=== PATIENT | female | born 1940 | race Caucasian/White ===

== ENCOUNTER 2019-08-08 12:35 | Outpatient (CLI) | payer MEDICARE, BC, SELFPAY ==
--- NOTE | ~2019-08-08 | MR_ITS ---
EXAMINATION: MR lumbar spine wo con DATE: 08/08/2019 13:34 INDICATION: Lumbar radiculopathy. TECHNIQUE: Magnetic resonance imaging (MRI) of the lumbar spine was performed without intravenous con trast. Sequences included sagittal T2-weighted FSE, sagittal T2-weighted FS FSE, sagittal T1-weighted FSE, and axial T2-weighted FSE. COMPARISON: Lumbar spine MRI 11/10/2017 FINDINGS: There is 18 degrees levoscoliosis of lumbar spine. There is 3 mm retrolisthesis of L1 on L2 , 4 mm retrolisthesis of L2 on L3, 3 mm anterolisthesis of L3 on L4, and 4 mm anterolisthesis of L4 o n L5. Vertebral body heights are normal. There is moderately decreased disc height at L1-L2, severely decreased disc height at L2-L3 and L3-L4, and mildly decreased disc height at L4-L5 and L5-S1. The d istal spinal cord signal intensity is normal. The conus medullaris is at L1-L2. The following disc le vels are specifically discussed: L1-L2: The disc is bulging. There is severe bilateral facet joint osteoarthritis. There is moderate b ilateral neural foraminal stenosis. There is mild central canal stenosis. L2-L3: The disc is bulging and has an annular fissure. There is severe bilateral facet joint osteoart hritis. There is severe right and mild left neural foraminal stenosis. There is mild central canal st enosis. L3-L4: The disc is bulging and has an annular fissure. There is severe bilateral facet joint osteoart hritis. There is moderate bilateral neural foraminal stenosis. There is severe central canal stenosis . L4-L5: The disc is bulging and has an annular fissure. There is severe bilateral facet joint osteoart hritis. There is moderate bilateral neural foraminal stenosis. There is severe central canal stenosis . L5-S1: The disc is bulging and has an annular fissure. There is severe bilateral facet joint osteoart hritis. There is mild bilateral neural foraminal stenosis. There is mild central canal stenosis. IMPRESSION: 1. Severe lumbar spondylosis, stable from 11/10/2017. 2. Lumbar levoscoliosis. Reviewed, dictated and finalized at location A.
== END 2019-08-08 12:36 | disposition home or self-care (01) ==
PROVIDERS: PCP Family Medicine; Visit Provider Nurse Practitioner Adult Health
DX: M47.26 Other spondylosis with radiculopathy, lumbar region (principal); M41.86 Other forms of scoliosis, lumbar region
CPT/HCPCS: 72148

== ENCOUNTER 2019-08-14 13:48 | Outpatient (CLI) | payer MEDICARE, BC, SELFPAY ==
[2019-08-14 14:17] LABS: Hematocrit 42.7 % (37.0-47.0); Hemoglobin 14.2 g/dL (12.0-15.0); Mean Corpuscular HGB Conc 33.3 g/dl (32-36); Mean Corpuscular Volume 87.3 fl (80-100); Mean Platelet Volume 8.8 fl (7.4-10.4); Platelet Count Result 372 k/mm3 (150-375); Red Blood Count 4.89 M/mm3 (4.2-5.4); White Blood Count 8.4 K/mm3 (4.5-10.0)
[2019-08-14 14:35] LABS: Blood Urea Nitrogen 10 mg/dL (7-17); Carbon Dioxide 32 mmol/L (22-30); Chloride 98 mmol/L (98-107); Estimated Glomerular Filt Rate > 60; Glucose 92 mg/dL (65-105); Potassium 3.8 mmol/L (3.4-5.0); Sodium 136 mmol/L (137-145)
== END 2019-08-14 13:49 | disposition home or self-care (01) ==
PROVIDERS: PCP Family Medicine; Visit Provider Nurse Practitioner Family
DX: R19.7 Diarrhea, unspecified (principal)
CPT/HCPCS: 36415; 80048; 85027

== ENCOUNTER 2020-02-24 13:41 | Outpatient (CLI) | payer MEDICARE, BC, SELFPAY ==
--- NOTE | ~2020-02-24 | XR_ITS ---
EXAMINATION: XR shoulder LT min 2V DATE: 02/24/2020 14:01 INDICATION: Left shoulder pain. TECHNIQUE: 4 views of left shoulder were obtained. COMPARISON: None. FINDINGS: Bone alignment is normal. No fracture. There is mild osteoarthritis of glenohumeral joint a nd moderate osteoarthritis of acromioclavicular joint. IMPRESSION: 1. Polyarticular osteoarthritis. Reviewed, dictated and finalized at location A. [employer]
== END 2020-02-24 13:42 | disposition home or self-care (01) ==
LOC: ANHIMG 13:50
PROVIDERS: PCP Family Medicine; Visit Provider Physician Assistant Medical
DX: M25.512 Pain in left shoulder (principal); M19.012 Primary osteoarthritis, left shoulder
CPT/HCPCS: 73030

== ENCOUNTER 2020-06-22 11:22 | Outpatient (CLI) | payer MEDICARE, BC, SELFPAY | END 2020-06-22 11:23 | disposition home or self-care (01) | PROVIDERS: PCP Family Medicine | DX: Z23 Encounter for immunization (principal) | CPT/HCPCS: 0001A; 91300 ==

== ENCOUNTER 2020-07-13 11:22 | Outpatient (CLI) | payer MEDICARE, BC, SELFPAY | END 2020-07-13 11:23 | disposition home or self-care (01) | LOC: ANHCOVIDVC 11:22 | PROVIDERS: PCP Family Medicine | DX: Z23 Encounter for immunization (principal) | CPT/HCPCS: 0002A; 91300 ==

== ENCOUNTER 2020-12-08 12:40 | Emergency (ER) | payer MEDICARE, BC, SELFPAY ==
--- NOTE | ~2020-12-08 | XR_ITS ---
EXAMINATION: XR hand LT min 3V DATE: 12/08/2020 13:05 INDICATION: Fall with open laceration to the left third digit TECHNIQUE: Posteroanterior, oblique and lateral views of the left hand were obtained. COMPARISON: None. FINDINGS: Diffuse osteopenia. 2 mm ulnar minus variance. No fracture. There is mild widening of the scapholunat e interval and slight incongruity along the carpal arcs at this location with nonuniform narrowing at the scaphoid capitate component of the midcarpal joint and at the radiolunate portion of the wrist j oint. 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 Additional mi ld polyarticular osteoarthritis at the distal radioulnar, triscaphe, first carpometacarpal and at the multiple metacarpophalangeal and interphalangeal joints. Soft tissues are unremarkable. No radiopaqu e foreign bodies. IMPRESSION: 1. No acute osseous abnormality or radiopaque foreign bodies. 2. Diffuse osteopenia and mild polyarticular osteoarthritis. 3. 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 Reviewed, dictated and finalized at location B. IMPRESSION: 1. No acute osseous abnormality or radiopaque foreign bodies. 2. Diffuse osteopenia and mild polyarticular osteoarthritis. 3. Constellation of findings suggesting scapholunate ligament insufficiency wit h secondary early scapholunate advanced collapse (SLAC) wrist.
--- NOTE | ~2020-12-08 | XR_ITS ---
EXAMINATION: XR hand RT min 3V DATE: 12/08/2020 13:05 INDICATION: Right hand injury. TECHNIQUE: 3 views of right hand were obtained. COMPARISON: None. FINDINGS: Bone alignment is normal. No fracture. There is diffuse osteopenia. There is mild osteoarth ritis of triscaphe joint, third and fifth metacarpophalangeal joints, and some of the interphalangeal joints. IMPRESSION: 1. Mild polyarticular osteoarthritis. Reviewed, dictated and finalized at location A.
[2020-12-08 12:45] VITALS: BP 140/89; PULSE 87; RESP 20; TEMP 36.8; O2SAT 99
--- NOTE | 2020-12-08 12:53 | ED.FALL ---
HPI - Fall General Chief Complaint: Fall Stated Complaint: ground level fall Time Seen by Provider: 12/08/20 12:44 Source: patient Mode of arrival: ambulatory Limitations: no limitations History of Present Illness HPI Narrative: Patient was trying to manage her trash can, somehow lost her balance and fell. Complaining of left middle finger pain and laceration, right hand pain. Patient denies other injuries. These have been prior to arrival to the emergency room. Related Data Home Medications Medication Instructions Recorded Confirmed hydrocodone 5 mg-acetaminophen 325 1 tablet PO Q6H PRN 03/26/19 08/24/20 mg tablet meclizine 25 mg tablet 25 mg PO TID 03/26/19 08/24/20 metoprolol succinate 25 mg 25 mg PO DAILY 03/26/19 08/24/20 tablet,extended release 24 hr rivaroxaban 10 mg tablet 10 mg PO DAILY 03/26/19 08/24/20 doxycycline hyclate 100 mg capsule 100 mg PO DAILY 03/24/20 08/24/20 Allergies Allergy/AdvReac Type Severity Reaction Status Date / Time lisinopril Allergy Mild itching Verified 12/08/20 12:52 nitrofurantoin Allergy Mild possible Verified 12/08/20 12:52 cause of Afib Sulfa (Sulfonamide Allergy Mild Unknown Verified 12/08/20 12:52 Antibiotics) adhesive tape Allergy Unknown SKIN TEARS Verified 12/08/20 12:52 alprazolam Allergy Unknown Unknown Verified 12/08/20 12:52 amoxicillin Allergy Unknown Unknown Verified 12/08/20 12:52 atorvastatin Allergy Unknown Unknown Verified 12/08/20 12:52 cerivastatin Allergy Unknown Unknown Verified 12/08/20 12:52 diclofenac Allergy Unknown Unknown Verified 12/08/20 12:52 ibuprofen Allergy Unknown Unknown Verified 12/08/20 12:52 inositol Allergy Unknown Unknown Verified 12/08/20 12:52 misoprostol Allergy Unknown Unknown Verified 12/08/20 12:52 naproxen Allergy Unknown Unknown Verified 12/08/20 12:52 niacin Allergy Unknown Unknown Verified 12/08/20 12:52 Penicillins Allergy Unknown Unknown Verified 12/08/20 12:52 pravastatin Allergy Unknown Unknown Verified 12/08/20 12:52 rosuvastatin Allergy Unknown Unknown Verified 12/08/20 12:52 simvastatin Allergy Unknown Unknown Verified 12/08/20 12:52 Dpzilbx-PXN-SdS Reductase Allergy Unknown joint pain Verified 12/08/20 12:52 Inhibitor [Odnkezn-Lus-Frt Reductase Inhibitor] topiramate Allergy Unknown Unknown Verified 12/08/20 12:52 Review of Systems Review of Systems: CONSTITUTIONAL: Denies fever, chills, or sweats. EYES: Denies visual changes, redness, or discharge. ENT: Denies rhinorrhea, congestion, sore throat, or otalgia. CARDIOVASCULAR: Denies chest pain, palpitations, or edema. RESPIRATORY: Denies cough or dyspnea. GASTROINTESTINAL: Denies abdominal pain, nausea, vomiting, or diarrhea. GENITOURINARY: Denies dysuria or hematuria. SKIN: Denies rash or itching. MUSCULOSKELETAL: Denies back pain, joint pain, or myalgia. NEUROLOGIC: Denies headache, numbness, or weakness. PSYCHIATRIC: Denies anxiety or depression. PMFSH Past Medical History Medical History Abdominal pain Anxiety Arthritis BMI 33.0-33.9,adult BMI 34.0-34.9,adult Depression Dizziness Fibromyalgia Painful total knee replacement Spinal stenosis Vertigo Vision changes Wears glasses Weight gain Surgical History Surgical History S/P total knee arthroplasty Family History Family History Mother Hypertension Cerebrovascular accident Sibling Carcinoma of colon Family history of coronary artery disease Other Diabetes mellitus Family history of malignant neoplasm Social History Social History Smoking status: Never smoker Second hand tobacco smoke exposure: No Alcohol intake: never Substance use: never Substance use type: does not use Exam Narrative: General appearance: Well-developed, well-nourished
[2020-12-08] MEDS: TETANUS,DIPHTHERIA,AC PERTUSSIS ADULT (0.5 ML) BOOSTRIX IM (13:17)
[2020-12-08 15:00] VITALS: BP 112/72; PULSE 84; RESP 20; O2SAT 99
== END 2020-12-08 15:00 | disposition home or self-care (01) ==
PROVIDERS: Emergency Provider Emergency Medicine; PCP Family Medicine
DX: S61.213A Laceration without foreign body of left middle finger without damage to nail, initial encounter (principal); Z79.891 Long term (current) use of opiate analgesic; Z23 Encounter for immunization; W19.XXXA Unspecified fall, initial encounter
CPT/HCPCS: 12001; 73130; 90471; 90715; 99284; J3010

== ENCOUNTER → 2021-04-02 02:46 | Outpatient (CLI) | payer MEDICARE, BC, SELFPAY ==
[2021-04-02 18:24] LABS: SARS-CoV-2 RNA PCR Negative
== END ==
PROVIDERS: PCP Family Medicine; Visit Provider Physician Assistant Medical
DX: R68.89 Other general symptoms and signs (principal); Z20.822 Contact with and (suspected) exposure to COVID-19
CPT/HCPCS: C9803; U0003; U0005

== ENCOUNTER 2021-05-11 13:35 | Outpatient (CLI) | payer MEDICARE, BC, SELFPAY ==
[2021-05-11 13:56] LABS: Basophils Absolute Auto 0.1 K/mm3 (0.0-0.1); Basophils Percent Auto 0.8 % (0.2-1.2); Eosinophils Absolute Auto 0.4 K/mm3 (0-0.3); Eosinophils Percent Auto 3.8 % (0-4.4); Hematocrit 42.3 % (37.0-47.0); Hemoglobin 13.6 g/dL (12.0-15.0); Immature Granulocyte Absolute 0.02 K/mm3 (0.00-0.031); Immature Granulocyte Percent A 0.2 % (0-0.5); Lymphocytes Absolute Auto 3.24 K/mm3 (0.9-3.2); Mean Corpuscular HGB Conc 32.2 g/dl (32-36); Mean Corpuscular Hemoglobin 28.2 pg (26-34); Mean Corpuscular Volume 87.8 fl (80-100); Mean Platelet Volume 8.4 fl (7.4-10.4); Monocytes Absolute Auto 0.9 K/mm3 (0.1-0.6); Monocytes Percent Auto 9.8 % (2.6-8.5); Neutrophils Absolute Auto 4.7 K/mm3 (1.3-6.7); Neutrophils Percent Auto 50.4 % (45.5-73.1); Platelet Count Result 353 k/mm3 (150-375); Red Blood Count 4.82 M/mm3 (4.2-5.4); White Blood Count 9.3 K/mm3 (4.5-10.0)
[2021-05-11 14:21] LABS: Alanine Aminotransferase 19 U/L (4-35); Albumin Level 4.4 g/dL (3.5-5.1); Alkaline Phosphatase 90 U/L (38-126); Anion Gap 8 mmol/L (8-16); Aspartate Amino Transferase 30 U/L (14-36); Bilirubin,Total 0.4 mg/dL (0.2-1.3); Blood Urea Nitrogen 15 mg/dL (7-17); Carbon Dioxide 29 mmol/L (22-30); Chloride 101 mmol/L (98-107); Cholesterol 226 mg/dL (0-200); Estimated Glomerular Filt Rate > 60; Glucose 125 mg/dL (65-110); HDL Direct 56 mg/dL; Potassium 4.3 mmol/L (3.4-5.0); Sodium 138 mmol/L (137-145); Triglycerides 150 mg/dL (<150)
[2021-05-11 14:33] LABS: LDL Cholesterol Direct 133 mg/dL
== END 2021-05-11 13:36 | disposition home or self-care (01) ==
LOC: ANHLAB 13:38
PROVIDERS: PCP Family Medicine; Visit Provider Physician Assistant Medical
DX: E78.2 Mixed hyperlipidemia (principal); E78.5 Hyperlipidemia, unspecified; I10 Essential (primary) hypertension
CPT/HCPCS: 36415; 80053; 80061; 85025

== ENCOUNTER 2021-06-17 00:55 | Day surgery (SDC) | payer MEDICARE, BC, SELFPAY ==
[2021-06-07 13:36] VITALS: BMI 33.3
--- NOTE | 2021-06-07 14:03 | PC.NURSE ---
Addendum entered by Haritha Smith RN 06/16/21 08:07: CONTACTED PT WITH UPDATED INSTRUCTIONS FOR LOCAL ANESTHESIA. INSTRUCTED TO ARRIVE [id number] FOR 1345 SURGERY, OK TO TAKE AM MEDS USUAL (PT CURRENTLY HOLDING XARELTO) AND OK TO HAVE A LIGHT BREAKFAST PRIOR TO ARRIVAL. Original Note: Report to the Outpatient Waiting Room, entrance under the green pavilion located off [facility], at time _8:30AM on date __06/17/21 . OR Time: ___10:30AM . - You and your visitor will be asked a series of questions to screen for COVID 19 for your protection. - A mask is required within the hospital. Preoperative COVID Testing Requirements: No COVID Test needed if: (proof is required; if not received patient will have Rapid Test prior to entry) - Patient has received COVID Vaccine at least 14 days prior to procedure date or - Patient has positive COVID test result within last 90 days of surgery date. COVID Test needed if above criteria is not met If not COVID vaccinated a COVID test must be conducted within 72 hours of surgery and patient is asked to isolate self from time of testing until procedure. You will go to the [facility] for your COVID testing. The [employer] [facility] site is located at the corner of [address] [facility]. You will only be called if COVID results are positive and your surgeon may reschedule your elective surgery date. Patients may have clear liquids (water, carbonated beverages, clear teas, apple juice) until 3 hours prior to surgery with a maximum of 20 ounces. - No food from midnight until time of surgery - Infants may have breast milk until 4 hours before surgery, formula 6 hours prior to surgery. - Children will be allowed to drink immediately following surgery. If applicable, please bring a bottle or sippy cup to assist with drinking. Juice, water, soda, and popsicles are readily available. For infants on formula, please bring formula the day of surgery. Pacifiers are allowed. Take the following medications with a SIP of water the morning of surgery: __BUSPIRONE, DULOXETINE, METOPROLOL, HYDROCODONE AND MECLIZINE NEEDED Medications to discontinue per physician __HOLD XERALTO 5 DAYS PRE-OP-LAST DOSE 06/12/21; HOLD ALL VITAMINS/SUPPLEMENTS 3 DAYS PRE-OP- LAST DOSE 06/14/21.__ Please no make-up, nail somali, hairspray, perfume, deodorant, or body powder the day of surgery. No jewelry (including any body piercings) or valuables the day of surgery, leave them at home. Please take a shower or bath the night before, or the morning of, surgery with an antibacterial soap. Wear comfortable, loose fitting clothing. Children are encouraged to wear pajamas. - Jewelry must be removed prior to entering the operating room. Rings and piercings that are not removed may be cut off. - The hospital will not accept responsibility for valuables. - Please leave all valuables, including medications, at home the day of surgery. If you are going home after surgery, a licensed regional refrigerated cdl truck driver must drive you home. - NO public transportation without another adult. - We recommend that an adult stay with you for 24 hours following discharge. - We also recommend that you do not drive, make important decision, drink alcoholic beverages, or take any drugs that were not prescribed by your health care provider for at least 24 hours after your discharge time. For Pediatric surgeries, we recommend two adults accompany the child home (only one inside the building at this time). One visitor will be allowed to accompany the patient into the hospital. Patients visitor will be instructed to remain with patient at all times or leave the building. We will allow the visitor to come back to the postoperative area when patient is ready. Follow any additional instructions given to you from your surgeon. Telephone instructions given to __PATIENT and asked if any additional questions and
[2021-06-17] VITALS (8 sets, daily range): BP systolic 124–147; BP diastolic 51–101; PULSE 76–92; RESP 14–16; TEMP 36.3; O2SAT 94–97
--- NOTE | 2021-06-17 07:12 | WPDHPUPDATE1 ---
History and Physical Update Update Date/Time: 06/17/21 07:12 History and Physical has been reviewed, including an updated exam of the patient. There are NO changes in the patient's condition. Risks, benefits, and alternatives have been discussed and questions answered. Patient agrees to proceed with procedure.
[2021-06-17] MEDS: BETAMETHASONE SOD PHOS/ACETATE 30 MG/5 ML VIAL 12 MG IM (14:30)
[2021-06-17] MEDS: LIDO 1%/EPINEPHRINE 1:100,000 50 ML VIAL INFILTRATE (14:32)
--- NOTE | 2021-06-17 14:57 | W.PM.PROC2 ---
Procedure Note - Detailed Date of Procedure 06/17/21 Pre-op Diagnosis Left carpal tunnel syndrome. Right carpal tunnel syndrome. Post-op Diagnosis Same Procedure Performed Left open carpal tunnel release and injection of Betamethasone 4.8 mg right carpal canal Surgeon Jose Rafael Burton MD Anesthesia MAC Description of Procedure The patient was scheduled for left open carpal tunnel release. In the holding area she asked that we inject the right carpal tunnel with betamethasone. Her consent was amended to reflect that. The 2 sites were marked for treatment. She was taken to the operating room and placed supine on the operating table. A time-out was held and confirmed. The left upper extremity was prepped and draped in usual fashion. The site was remarked for the incision this was locally infiltrated with 1% lidocaine with epinephrine. The tourniquet was inflated to 250 mmHg. The incision was made as marked. The dissection was carried through the subcutaneous tissue to the palmar aponeurosis. This and the transverse retinaculum were incised with a 15 blade. Both were opened under direct vision to completely release the carpal canal. There was no unusual anatomy noted. The skin was closed with interrupted 5 0 nylon. The tourniquet was released just before closure. The usual bandage was applied. The betamethasone 6 mg per milliliter was drawn up. The right carpal tunnel was prepped with alcohol and 0.8 milliliter or 4.8 mg of betamethasone was injected without difficulty into the right carpal canal. Band-Aid applied Drains No Packing No Pathology None sent Complications No immediate complications Condition Stable Disposition Same day
== END 2021-06-17 15:35 | disposition home or self-care (01) ==
PROVIDERS: PCP Family Medicine; Visit Provider Plastic Surgery
PROC: (CPT 64721; principal; 2021-06-17 13:45)
PROC: (CPT 64721; 2021-06-17 13:45)
DX: G56.03 Carpal tunnel syndrome, bilateral upper limbs (principal); Z79.01 Long term (current) use of anticoagulants; Z79.891 Long term (current) use of opiate analgesic
CPT/HCPCS: 64721; 20526; J0702

== ENCOUNTER → 2021-08-23 13:48 | Outpatient (CLI) | payer MEDICARE, BC, SELFPAY ==
--- NOTE | ~2021-08-23 | MR_ITS ---
EXAMINATION: MR lumbar spine wo con DATE: 08/23/2021 14:26 INDICATION: Low back pain. Bilateral leg pain. TECHNIQUE: Magnetic resonance imaging (MRI) of the lumbar spine was performed without intravenous con trast. Sequences included sagittal T2-weighted FSE, sagittal T2-weighted FS FSE, sagittal T1-weighted FSE, and axial T2-weighted FSE. COMPARISON: Lumbar spine MRI 08/08/2019 FINDINGS: There is 16 degrees levoscoliosis of lumbar spine. There is 4 mm retrolisthesis of L1 on L2 and L2 on L3, 4 mm anterolisthesis of L3 on L4, and 6 mm anterolisthesis of L4 on L5. There is sever tr decreased disc height from L1-L2 through L3-L4 and moderately decreased disc height at L4-L5 and L5-S1 with endplate remodeling. There is Baastrup disease from L2-L3 through L4-L5. There is ligament um flavum hypertrophy at the disc levels from L1-L2 through L4-L5. The distal spinal cord signal inte nsity is normal. The conus medullaris is at L1-L2. The following disc levels are specifically discuss ed: L1-L2: The disc is bulging and has an annular fissure. There is severe bilateral facet joint osteoart hritis. There is moderate bilateral neural foraminal stenosis. There is mild central canal stenosis. L2-L3: The disc is bulging and has an annular fissure. There is severe bilateral facet joint osteoart hritis. There is severe right and mild left neural foraminal stenosis. There is mild central canal st enosis. L3-L4: The disc is bulging and has an annular fissure. There is severe bilateral facet joint osteoart hritis. There is severe right and moderate left neural foraminal stenosis. There is severe central ca nal stenosis. L4-L5: The disc is bulging and has an annular fissure. There is severe bilateral facet joint osteoart hritis. There is moderate bilateral neural foraminal stenosis. There is moderate central canal stenos is. L5-S1: The disc is bulging and has an annular fissure. There is severe bilateral facet joint osteoart hritis. There is mild bilateral neural foraminal stenosis. There is mild central canal stenosis. IMPRESSION: 1. Severe lumbar spondylosis, stable from 08/08/2019. 2. Lumbar levoscoliosis. Reviewed, dictated and finalized at location A.
== END ==
PROVIDERS: PCP Family Medicine; Visit Provider Physical Medicine & Rehabilitation
DX: M47.816 Spondylosis without myelopathy or radiculopathy, lumbar region (principal); M41.86 Other forms of scoliosis, lumbar region
CPT/HCPCS: 72148

== ENCOUNTER 2021-12-11 06:45 | Emergency (ER) | payer MEDICARE, BC, SELFPAY ==
--- NOTE | ~2021-12-11 | CT_ITS ---
EXAMINATION: CT abdomen pelvis w con DATE: 12/11/2021 08:25 INDICATION: Left flank pain. History of cholecystectomy and umbilical hernia repair. TECHNIQUE: Computed tomography (CT) of the abdomen and pelvis was performed with 100 cc Omnipaque 350 intravenous contrast. The dose-length product was 1213.63 mGy-cm. Automated exposure control and ite rative reconstruction technique were employed. COMPARISON: None. FINDINGS: Cardiomegaly. There is bibasilar dependent atelectasis. No significant pleural or pericardi al effusion. There is a 3 mm left mid ureteral stone with mild hydronephrosis. No significant vascula r abnormality. No lymphadenopathy. Status post cholecystectomy. The liver, spleen, pancreas, adrenal glands and right kidney are unremar kable. Nonobstructive bowel pattern.. Osteopenia. There is severe lumbar spondylosis with grade 1 spo ndylolisthesis at L4-5 and L3-4. IMPRESSION: 1. 3 mm left mid ureteral stone at the L3-4 level. Mild hydronephrosis. Reviewed, dictated and finalized at location A.
--- NOTE | ~2021-12-11 | XR_ITS ---
XR abdomen/kub 1V 12/11/2021 08:52 INDICATION: Ureteral stone TECHNIQUE: KUB COMPARISON: CT dated 12/11/2021 FINDINGS: Bowel gas pattern is normal. There is contrast in the kidneys, renal collecting systems and bladder. There is mildly dilated left renal pelvis compared with the right. No definite filling defe ct is identified in the ureter. There is severe lumbar spondylosis with levoscoliosis. There is no ev idence of free air, mass, organomegaly, ascites or obstruction. No abnormal calculi are seen. The b ones appear intact. IMPRESSION: 1: Mild left hydronephrosis.. Reviewed, dictated and finalized at location A.
[2021-12-11 06:48] VITALS: BP 171/74; PULSE 80; PULSE 88; RESP 23; TEMP 36.8; O2SAT 100
--- NOTE | 2021-12-11 06:55 | PC.NURSE ---
Pt reports took home dose of [place] about 30 mins ago and no relief of pain
[2021-12-11] MEDS: ONDANSETRON INJ 4 MG/2 ML VIAL IV PUSH (07:01)
[2021-12-11 07:09] VITALS: BP 157/67; PULSE 77; RESP 18; O2SAT 97
--- NOTE | 2021-12-11 07:16 | ED.GENADULT ---
HPI - General Adult General Chief complaint: Unspecified Stated complaint: left side pain Time Seen by Provider: 12/11/21 07:03 Source: RN notes reviewed History of Present Illness HPI narrative: Presents to emergency department from home for left-sided abdominal flank pain. Patient states the pain woke her from sleep this morning the pain is located in the left flank and radiates to the left side the abdomen has been associate with nausea and vomiting. She states the pain is described as sharp and stabbing she denies any fevers or chills diarrhea or any other symptoms patient states she has hydrocodone at home for chronic back pain which she took prior to arrival Related Data Home Medications Medication Instructions Recorded Confirmed hydrocodone 5 mg-acetaminophen 325 2 tablet PO Q6H PRN Pain 03/26/19 09/29/21 mg tablet meclizine 25 mg tablet 25 mg PO TID PRN Dizziness 03/26/19 09/29/21 metoprolol succinate 25 mg 12.5 mg PO QAM 03/26/19 09/29/21 tablet,extended release 24 hr dznvcvtppb-mnqhqhbxepbxh-nvejhfyp 1 tablet PO Q4H PRN Headache 06/07/21 09/29/21 50 mg-325 mg-40 mg tablet glucosamine-chondroitin 250 mg-200 2 tablet PO DAILY 06/07/21 09/29/21 mg tablet (Osteo Bi-Flex) multivitamin with minerals-folic 1 tablet PO DAILY 06/07/21 09/29/21 acid 0.4 mg tablet omeprazole 20 mg capsule,delayed 20 mg PO DAILY PRN Indigestion 06/07/21 09/29/21 release rivaroxaban 20 mg tablet (Xarelto) 20 mg PO DAILY 06/07/21 09/29/21 Allergies Allergy/AdvReac Type Severity Reaction Status Date / Time nitrofurantoin Allergy Intermediate possible Verified 12/11/21 07:11 cause of Afib Sulfa (Sulfonamide Allergy Mild Unknown Verified 12/11/21 07:11 Antibiotics) adhesive tape Allergy Unknown SKIN TEARS Verified 12/11/21 07:11 Penicillins Allergy Unknown JAUNDICE Verified 12/11/21 07:11 Sbthyez-HGZ-OlM Reductase AdvReac Intermediate LEG PAIN Verified 12/11/21 07:11 Inhibitor ibuprofen AdvReac Unknown Flushing Verified 12/11/21 07:11 Review of Systems Review of Systems: Gen.: Denies fevers or chills ENT: Denies congestion Respiratory: Denies shortness of breath or cough CV: Denies chest pain or palpitations GI: See HPI denies burning, urgency, frequency or hematuria Musculoskeletal: Denies back pain or muscle pain Neuro: Denies numbness, tingling, weakness or focal weakness Skin: Denies rash Except as documented, all other systems reviewed and negative PMFSH Past Medical History Medical History Abdominal pain Anxiety Arthritis BMI 33.0-33.9,adult BMI 34.0-34.9,adult BMI over 35 Depression Dizziness Fibromyalgia Painful total knee replacement Spinal stenosis Vertigo Vision changes Wears glasses Weight gain Surgical History Surgical History S/P total knee arthroplasty Family History Family History Mother Hypertension Cerebrovascular accident Sibling Carcinoma of colon Family history of coronary artery disease Father No problems noted. 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 CARDIOVASCULAR: Regular rate and rhythm without murmurs rubs or gallops.
[2021-12-11] MEDS: SODIUM CHLORIDE 0.9% IV 1,000 ML 999 ML IV CONT (07:21)
[2021-12-11] MEDS: MORPHINE SULFATE (*CRX) 4 MG/ML INJ 2 MG IV PUSH (07:22)
[2021-12-11 07:51] LABS: Alanine Aminotransferase 24 U/L (6-35); Albumin Level 4.1 g/dL (3.5-5.1); Alkaline Phosphatase 93 U/L (38-126); Anion Gap 9 mmol/L (8-16); Aspartate Amino Transferase 28 U/L (14-36); Bilirubin,Total 0.3 mg/dL (0.2-1.3); Blood Urea Nitrogen 16 mg/dL (7-17); Calcium 8.7 mg/dL (8.4-10.2); Carbon Dioxide 27 mmol/L (22-30); Chloride 102 mmol/L (98-107); Estimated CRCL calculation 71 ml/min; Estimated Glomerular Filt Rate > 60; Glucose 126 mg/dL (65-110); Lipase 154 U/L (23-300); Potassium 3.7 mmol/L (3.4-5.0); Sodium 138 mmol/L (137-145)
[2021-12-11 08:04] LABS: Basophils Absolute Auto 0.1 K/mm3 (0.0-0.1); Basophils Percent Auto 0.8 % (0.2-1.2); Eosinophils Absolute Auto 0.3 K/mm3 (0-0.3); Eosinophils Percent Auto 2.8 % (0-4.4); Immature Granulocyte Absolute 0.05 K/mm3 (0.00-0.031); Immature Granulocyte Percent A 0.4 % (0-0.5); Lymphocytes Absolute Auto 3.15 K/mm3 (0.9-3.2); Lymphocytes Percent Auto 27.7 % (18.3-44.2); Mean Corpuscular HGB Conc 32.5 g/dl (32-36); Mean Corpuscular Hemoglobin 28.8 pg (26-34); Mean Corpuscular Volume 88.7 fl (80-100); Monocytes Absolute Auto 0.9 K/mm3 (0.1-0.6); Monocytes Percent Auto 8.1 % (2.6-8.5); Neutrophils Absolute Auto 6.8 K/mm3 (1.3-6.7); Neutrophils Percent Auto 60.2 % (45.5-73.1); Platelet Count Result 364 k/mm3 (150-375); Red Blood Count 4.51 M/mm3 (4.2-5.4); Red Cell Distribution Width 13.2 % (11.5-14.5); White Blood Count 11.4 K/mm3 (4.5-10.0)
[2021-12-11 08:51] LABS: Add Urine Microscopic? YES; Appearance Urine Clear (Clear); Bilirubin Urine Negative (Negative); Blood Urine 2+ (Negative); Calcium Oxalate Crystals Urine Present /hpf; Color Urine Yellow (Yellow); Glucose Urine UA Negative (Negative); Ketones Urine Negative (Negative); Leukocyte Esterase Ur Negative LEU/UL (Negative); Mucus Urine Rare /lpf; Nitrate Urine Negative (Negative); Protein Urine Negative (Negative); RBC Urine 21-50 /hpf (0-2); Squamous Epithelial Cell Urine Rare /hpf (Few); Urobilinogen Urine Negative mg/dL (<2.0)
[2021-12-11 09:14] VITALS: BP 129/67; PULSE 91; RESP 18; O2SAT 98
[2021-12-11] MEDS: TAMSULOSIN HCL 0.4 MG CAPSULE PO (10:08)
[2021-12-11 10:58] VITALS: BP 145/82; PULSE 89; RESP 18; O2SAT 100
== END 2021-12-11 11:01 | disposition home or self-care (01) ==
PROVIDERS: Emergency Provider Emergency Medicine; PCP Family Medicine
DX: N13.2 Hydronephrosis with renal and ureteral calculous obstruction (principal); M79.7 Fibromyalgia; F32.A Depression, unspecified; M48.00 Spinal stenosis, site unspecified; Z79.891 Long term (current) use of opiate analgesic; Z79.01 Long term (current) use of anticoagulants
CPT/HCPCS: 36415; 51701; 74018; 74177; 80053; 81001; 83690; 85025; 96361; 96374; 96375; 99284; A9270; J2270; J2405; J7030; Q9967

== ENCOUNTER 2021-12-26 12:25 | Observation (INO) | payer MEDICARE, BC, SELFPAY ==
[2021-12-26] VITALS (9 sets, daily range): BP systolic 107–158; BP diastolic 55–80; PULSE 92–117; RESP 17–18; TEMP 36.4–36.6; O2SAT 95–100
--- NOTE | ~2021-12-26 | CT_ITS ---
EXAMINATION: CT abdomen pelvis wo con DATE: 12/27/2021 13:55 INDICATION: Kidney stone. Left abdominal pain. TECHNIQUE: Computed tomography (CT) of the abdomen and pelvis was performed without intravenous contr ast. Automated exposure control and iterative reconstruction technique were employed. The dose-length product was 1304.70 mGy-cm. COMPARISON: CT abdomen and pelvis 12/11/2021 FINDINGS: The visualized portions of the lung bases demonstrate mild atelectasis. No pleural effusion . The heart size is normal. No pericardial effusion. The liver and spleen are normal. There are no es of cholecystectomy. The pancreas and adrenal glands are normal. There is a 3 mm stone in right kid balbir. Left kidney is normal. There are no dilated loops of bowel. The appendix is normal. There are no pathologically enlarged lymph nodes. There is no free intraperitoneal fluid. There is lumbar levosco liosis and severe spondylosis. IMPRESSION: 1. 3 mm nonobstructing right kidney stone. Reviewed, dictated and finalized at location A.
[2021-12-26 13:30] LABS: Basophils Absolute Auto 0.1 K/mm3 (0.0-0.1); Basophils Percent Auto 0.6 % (0.2-1.2); Eosinophils Absolute Auto 0.2 K/mm3 (0-0.3); Eosinophils Percent Auto 1.7 % (0-4.4); Hematocrit 41.3 % (37.0-47.0); Hemoglobin 13.9 g/dL (12.0-15.0); Immature Granulocyte Absolute 0.04 K/mm3 (0.00-0.031); Immature Granulocyte Percent A 0.5 % (0-0.5); Lymphocytes Absolute Auto 0.78 K/mm3 (0.9-3.2); Mean Corpuscular HGB Conc 33.7 g/dl (32-36); Mean Platelet Volume 8.4 fl (7.4-10.4); Monocytes Absolute Auto 1.1 K/mm3 (0.1-0.6); Monocytes Percent Auto 12.2 % (2.6-8.5); Neutrophils Absolute Auto 6.6 K/mm3 (1.3-6.7); Platelet Count Result 296 k/mm3 (150-375); Red Cell Distribution Width 13.2 % (11.5-14.5); White Blood Count 8.7 K/mm3 (4.5-10.0)
[2021-12-26 13:42] LABS: Anion Gap 12 mmol/L (8-16); Blood Urea Nitrogen 23 mg/dL (7-17); Calcium 8.7 mg/dL (8.4-10.2); Carbon Dioxide 26 mmol/L (22-30); Chloride 98 mmol/L (98-107); Estimated CRCL calculation 44 ml/min; Estimated Glomerular Filt Rate 53; Glucose 106 mg/dL (65-110); Lipase 42 U/L (23-300); Magnesium 1.8 mg/dL (1.6-2.3); Potassium 2.8 mmol/L (3.4-5.0); Sodium 136 mmol/L (137-145)
[2021-12-26] MEDS: POTASSIUM CHLORIDE 20 MEQ PACKET (FOR LIQUID) 40 MEQ PO (13:56)
[2021-12-26] MEDS: LACTATED RINGERS 1,000 ML 999 ML IV CONT (13:57)
--- NOTE | 2021-12-26 14:23 | ECG_ITS ---
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
--- NOTE | 2021-12-26 14:40 | ED.NAVMDI ---
HPI - Nausea/Vomiting/Diarrhea General Chief complaint: Nausea/Vomiting/Diarrhea Stated complaint: N/V/D Time Seen by Provider: 12/26/21 12:48 History of Present Illness HPI Narrative: Patient just started on macrobid for her UTI, started having severe diarrhea afterwards and some muscle cramps/weakness. Similar issues happened last time she was on macrobid. Related Data Home Medications Medication Instructions Recorded Confirmed hydrocodone 5 mg-acetaminophen 325 2 tablet PO Q6H PRN Pain 03/26/19 12/26/21 mg tablet meclizine 25 mg tablet 25 mg PO TID PRN Dizziness 03/26/19 12/26/21 metoprolol succinate 25 mg 12.5 mg PO QAM 03/26/19 12/26/21 tablet,extended release 24 hr bfdvwcfwxs-qzcnebfeybpgr-jhibnjqy 1 tablet PO Q4H PRN Headache 06/07/21 12/26/21 50 mg-325 mg-40 mg tablet glucosamine-chondroitin 250 mg-200 2 tablet PO DAILY 06/07/21 12/26/21 mg tablet (Osteo Bi-Flex) multivitamin with minerals-folic 1 tablet PO DAILY 06/07/21 12/26/21 acid 0.4 mg tablet omeprazole 20 mg capsule,delayed 20 mg PO DAILY PRN Indigestion 06/07/21 12/26/21 release rivaroxaban 20 mg tablet (Xarelto) 20 mg PO DAILY 06/07/21 12/26/21 Allergies Allergy/AdvReac Type Severity Reaction Status Date / Time nitrofurantoin Allergy Intermediate possible Verified 12/26/21 18:25 cause of Afib Sulfa (Sulfonamide Allergy Mild Unknown Verified 12/26/21 18:25 Antibiotics) adhesive tape Allergy Unknown SKIN TEARS Verified 12/26/21 18:25 Penicillins Allergy Unknown JAUNDICE Verified 12/26/21 18:25 Udjrhhh-VCS-SfW Reductase AdvReac Intermediate LEG PAIN Verified 12/26/21 18:25 Inhibitor ibuprofen AdvReac Unknown Flushing Verified 12/26/21 18:25 Review of Systems Review of Systems: CONST: No fever. HEENT: No sore throat C/V: No chest pain RESP: No cough GI: Reports abdominal cramping and diarrhea : Dysuria. M/S: No joint pain. SKIN: No rash. NEURO: [No headache or focal numbness or weakness] PSYCH: [No depression] [facility] Past Medical History Medical History Abdominal pain Anxiety Arthritis BMI 33.0-33.9,adult BMI 34.0-34.9,adult BMI over 35 Depression Dizziness Fibromyalgia Painful total knee replacement Spinal stenosis Vertigo Vision changes Wears glasses Weight gain Surgical History Surgical History S/P total knee arthroplasty Family History Family History Mother Hypertension Cerebrovascular accident Sibling Carcinoma of colon Family history of coronary artery disease Father No problems noted. 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 [employer] Gender identity (if verbalized by the patient): Female Spiritual care concerns: No (Congregational) Has the Lack of Transportation Kept You From Medical Appointments or From Getting Medications?: No Within the Past 12 Months, Were You Worried Whether Your Food Would Run Out Before You Got Money to Buy More?: Never True What is Your Housing Situation Today?: I Have Housing Are You Worried That in the Next 2 Months, You May Not Have Your Own Housing to Live In?: No Do You Have Trouble Paying Your Heating Or Electricity Bill?: No Do You Have Trouble Paying For Medicines?: No Are You Currently Unemployed and Looking for Work?: No Highest Level of Education Completed: High School Diploma/GED Do You Have Trouble With Childcare or the Care of a Family Member?: No Exam Narrative: EXAMINATION OF ORGAN SYSTEMS/BODY AREAS: Constitutional: Vital signs p
[2021-12-26] MEDS: HYDROcodone/acetaminophen (*CRX) 5-325 MG TABLET 1 TAB PO ×2 (15:09→23:00)
[2021-12-26] MEDS: POTASSIUM CHLORIDE INJ 40 MEQ in SODIUM CHLORIDE 0.9% IV 500 ML 130 MEQ IVPB (16:11)
--- NOTE | 2021-12-26 16:45 | PM.IMHP ---
H&P: HPI History of Present Illness Date/Time: 12/26/21 16:45 Chief Complaint: Diarrhea. Narrative: This is a pleasant 81-year-old female with paroxysmal atrial fibrillation on anticoagulation, hypertension, dyslipidemia, fibromyalgia, GERD, and other comorbidities who presented to the emergency department from home for evaluation of diarrhea. she was seen in the emergency department on 12/11/2021 with left-sided abdominal pain at which time she was found to have a 3 millimeter left mid ureteral stone with mild hydronephrosis. She was able to be discharged home and followed up with Urology having passed her stone without intervention. she was started on Macrobid for urinary tract infection however after her 1st toe she started to have loose stools and she reports having too numerous to count episodes of diarrhea over the past 24 hours. She has gotten so weak that she has not been able to get herself out of bed and she called emergency services this morning. Her vital signs have been stable since arrival to the ED. labs were significant for a sodium of 136 and potassium of 2.8. She has had no further stools since arrival to the ER after receiving a dose of loperamide. She has a history of antibiotic induced diarrhea and profound hypokalemia secondary to the same requiring hospitalization and she is being admitted in this setting for further treatment. At the time my evaluation she is resting comfortably and has no specific complaints. She specifically denies fever, chills, sweats, abdominal pain, vomiting, and blood or mucus in the stool. No recent travel or sick contacts. Review of Systems Review of Systems: Twelve systems were reviewed and are negative except for as per HPI. [facility] Past Medical History Medical History (Updated 12/26/21 @ 20:56 by Pema Parks PA-C) Anxiety Arthritis Chronic anticoagulation Chronic pain syndrome Depression Essential hypertension Fibromyalgia Mixed hyperlipidemia Paroxysmal atrial fibrillation Spinal stenosis Surgical History Surgical History (Updated 12/26/21 @ 20:56 by Pema Parks PA-C) History of benign breast biopsy History of cataract extraction with lens replacement History of cholecystectomy History of inguinal hernia repair History of left knee replacement History of right knee joint replacement History of tonsillectomy Family History Family History Mother Hypertension Cerebrovascular accident Sibling Carcinoma of colon Family history of coronary artery disease Father No problems noted. Other Diabetes mellitus Family history of malignant neoplasm Social History Social History (Updated 12/26/21 @ 20:52 by Pema Parks PA-C) Social History: Surrogate medical decision maker: Virgil Ramirez, friend. Code status: Full code Smoking status: Never smoker Second hand tobacco smoke exposure: No Alcohol intake: never Substance use: never Substance use type: does not use Living arrangements: alone Additional living arrangements comments: Lives in her own home. She has 3 children. Ambulates with a cane. 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 Spiritual care concerns: No (Religion) Has the Lack of Transportation Kept You From Medical Appointments or From Getting Medications?: No Within the Past 12 Months, Were You Worried Whether Your Food Would Run Out Before You Got Money to Buy More?: Never True What is Your Housing Situation Today?: I Have Housing Are You Worried That in the Next 2 Months, You May Not Have Your Own Housing to Live In?: No Do You Have Trouble Paying Your Heating Or Electricity Bill?: No Do You Have Trouble Paying For Medicines?: No Are You Currently Unemployed and Looking for Work?: No Highest Level of Education Completed: High School Diploma/GED Do You Have Trouble
[2021-12-26] MEDS: CIPROFLOXACIN 250 MG TABLET PO (17:38)
--- NOTE | 2021-12-26 17:50 | ADMGEN ---
This patient, Torri Flower, was admitted to 2 Medical Room 254-01. Patient/family oriented to hospital policies and general routines including ID bracelet, bed and alarms, visiting hours, pain management, procedures, bathroom and other care routines, personal items, smoking policy, room service/diet, and visiting hours. Information on how to activate the Rapid Response Team has been discussed. Patient/Family are encouraged to report perceived risks to care and to ask questions if they do not understand what they are told or what they should do.
[2021-12-26] MEDS: KCL 20 MEQ/D5/0.45% SOD CHL 1,000 ML 125 ML IV CONT (20:10)
[2021-12-26 21:22] LABS: Anion Gap 10 mmol/L (8-16); Blood Urea Nitrogen 20 mg/dL (7-17); Calcium 8.4 mg/dL (8.4-10.2); Carbon Dioxide 28 mmol/L (22-30); Chloride 100 mmol/L (98-107); Estimated CRCL calculation 4 ml/min; Estimated Glomerular Filt Rate > 60; Glucose 112 mg/dL (65-110); Magnesium 1.8 mg/dL (1.6-2.3); Potassium 3.9 mmol/L (3.4-5.0); Sodium 138 mmol/L (137-145)
[2021-12-26 22:01] LABS: Add Urine Microscopic? YES; Appearance Urine Cloudy (Clear); Bacteria Urine Trace /hpf; Bilirubin Urine Negative (Negative); Blood Urine Negative (Negative); Color Urine Yellow (Yellow); Glucose Urine UA Negative (Negative); Ketones Urine Trace mg/dL (Negative); Leukocyte Esterase Ur 2+ LEU/UL (Negative); Mucus Urine Rare /lpf; Nitrate Urine Negative (Negative); Protein Urine Negative (Negative); RBC Urine 0-2 /hpf (0-2); Specific Grav Ur 1.018 (1.001-1.035); Squamous Epithelial Cell Urine Moderate /hpf (Few); Urobilinogen Urine Negative mg/dL (<2.0)
[2021-12-26 22:10] LABS: IFOB Positive Control Positive; Immunochemical Fecal Occult Bl Negative (N)
[2021-12-26 22:41] LABS: Toxigenic C. Diff NEGATIVE (NEGATIVE)
[2021-12-26] MEDS: busPIRone HCL 5 MG TABLET PO (22:43)
[2021-12-26] MEDS: METOPROLOL SUCCINATE EXT REL 12.5 MG TABCR PO (22:43)
[2021-12-26] MEDS: busPIRone HCL 2.5 MG TABLET PO (22:43)
[2021-12-26] MEDS: RIVAROXABAN 20 MG TABLET PO (22:43)
[2021-12-27] VITALS (9 sets, daily range): BP systolic 121–148; BP diastolic 68–79; PULSE 82–112; RESP 18; TEMP 36.6; O2SAT 97–99
[2021-12-27 05:54] LABS: Hematocrit 37.9 % (37.0-47.0); Hemoglobin 12.5 g/dL (12.0-15.0); Mean Corpuscular Hemoglobin 28.3 pg (26-34); Mean Corpuscular Volume 85.7 fl (80-100); Mean Platelet Volume 8.4 fl (7.4-10.4); Platelet Count Result 249 k/mm3 (150-375); Red Blood Count 4.42 M/mm3 (4.2-5.4); Red Cell Distribution Width 13.2 % (11.5-14.5); White Blood Count 7.2 K/mm3 (4.5-10.0)
[2021-12-27 06:14] LABS: Alanine Aminotransferase 60 U/L (6-35); Albumin Level 3.6 g/dL (3.5-5.1); Alkaline Phosphatase 93 U/L (38-126); Anion Gap 7 mmol/L (8-16); Aspartate Amino Transferase 105 U/L (14-36); Bilirubin,Total 0.5 mg/dL (0.2-1.3); Blood Urea Nitrogen 14 mg/dL (7-17); Calcium 8.7 mg/dL (8.4-10.2); Carbon Dioxide 27 mmol/L (22-30); Chloride 103 mmol/L (98-107); Estimated CRCL calculation 67 ml/min; Estimated Glomerular Filt Rate > 60; Glucose 116 mg/dL (65-110); Magnesium 1.8 mg/dL (1.6-2.3); Potassium 4.1 mmol/L (3.4-5.0); Sodium 137 mmol/L (137-145)
--- NOTE | 2021-12-27 08:00 | PM.DS ---
DS: Admitting Diagnosis Discharge Date 12/27/21 0800 Admitting Diagnosis antibiotic induced diarrhea DS: Discharge Diagnosis Discharge Diagnosis (1) Antibiotic-associated diarrhea: Code(s): K52.1 - Toxic gastroenteritis and colitis; T36.95XA - Adverse effect of unspecified systemic antibiotic, initial encounter Status: Acute (2) Hypokalemia: Code(s): E87.6 - Hypokalemia Status: Acute (3) Dehydration: Code(s): E86.0 - Dehydration Status: Acute (4) Paroxysmal atrial fibrillation: Code(s): I48.0 - Paroxysmal atrial fibrillation Status: Acute (5) Chronic anticoagulation: Code(s): Z79.01 - medical terminologist (current) use of anticoagulants Status: Acute (6) Essential hypertension: Code(s): I10 - Essential (primary) hypertension Status: Acute (7) Chronic pain syndrome: Code(s): G89.4 - Chronic pain syndrome Status: Acute Plan The patient presented to the emergency department today for evaluation of weakness and profound diarrhea. She was recently started on Macrobid and had diarrhea after the 1st dose; reportedly she had similar episodes of diarrhea with Macrobid in the past though she has no known history of C diff. Her abdominal exam today is benign and colitis, enteritis, etc. seems less likely. We will discontinue Macrobid and I have requested records from Urology for review of her recent urine culture. She received a dose of ciprofloxacin in the emergency department and I will hold on scheduling any further antibiotics, pending records review. Her potassium is quite low, likely due to her diarrhea, and that will be replaced and monitored closely. Stool cultures and stool for C diff have been sent and are pending. She is dry on exam and by labs and she will be cautiously hydrated overnight. Her labs and vital signs were reviewed and they have been stable. She is currently in a sinus rhythm. Her home medications will be reviewed and resumed as appropriate. DS: Summary Hospital Course Hospital Course: Patient is a 81-year-old female with a past medical history of AFib, hypertension, dyslipidemia, fibromyalgia, GERD who presented to the ED with complaints of diarrhea. She stated that she recently was at the urologist appointment for stent placement and lithotripsy. At that time she was placed on Macrobid for a possible UTI. She stated that she has had this problem the last time she had taken Macrobid. Macrobid had been discontinued. Would diarrhea has resolved. Patient was noted to have a low potassium which has been replenished and potassium today was 4.1. Patient is stable at this time and is ready for discharge. Patient is excited ready to go. Patient denies any chest pain, shortness a breath, nausea, vomiting, diarrhea, constipation, weakness or fatigue. Patient is stable for discharge at this time per labs and vital signs. Status at Discharge Functional status at discharge: independent ambulation Overall status at discharge: patient is progressing back to baseline Time Spent with Patient Time attestation: Total time spent providing and/or coordinating discharge services: 36 minutes Time spent: Greater than 30 minutes Specific discharge activities: Diagnostic testing, chart review, developing a treatment plan, education, care coordination documentation, physical exam, result review Exam Const: General: cooperative, healthy appearing, no acute distress, well developed, alert, awake and well nourished Nutritional Appearance: well nourished Orientation/consciousness: patient oriented x3 Limitations: no limitations HENMT: Head: normal to inspection Ears: hearing grossly normal bilaterally Face/Nose/Sinus: Normal external nose present Mouth: Yes Normal oral and palatal mucosa present, Yes lip normal and Yes tongue normal Teeth and gingiva: abnormal tooth and associated gingiva and poor dentition Eyes: General: appearance normal, both eyes and all rel
[2021-12-27] MEDS: HYDROcodone/acetaminophen (*CRX) 5-325 MG TABLET 1 TAB PO (08:38)
[2021-12-27] MEDS: busPIRone HCL 5 MG TABLET PO ×2 (08:39→13:03)
[2021-12-27] MEDS: THERAPEUTIC MULTIVITAMINS/MINERALS TAB (*BKC) 1 TABLET PO (08:40)
[2021-12-27] MEDS: CELECOXIB 200 MG CAPSULE PO (08:40)
[2021-12-27] MEDS: DULoxetine HCL 60 MG CAPSULE.DR PO (08:40)
[2021-12-27] MEDS: busPIRone HCL 2.5 MG TABLET PO ×2 (08:41→13:03)
[2021-12-27 13:29] LABS: Hepatitis B Surface Antigen Negative (Negative)
[2021-12-27 13:35] LABS: HAV RESULT Negative (Negative); Hepatitis B Core IgM Result Negative (Negative)
[2021-12-27 13:47] LABS: Hepatitis C Virus Antibody Negative (Negative)
== END 2021-12-27 16:15 | disposition home or self-care (01) ==
LOC: ANHED 17:21 → ANH2MED 17:54
PROVIDERS: Nurse Practitioner; Physician Assistant; Admitting Provider Chiropractor; Emergency Provider Emergency Medicine; PCP Family Medicine; Visit Provider Chiropractor
DX: K52.1 Toxic gastroenteritis and colitis (principal); T36.95XA Adverse effect of unspecified systemic antibiotic, initial encounter; E87.6 Hypokalemia; E86.0 Dehydration; N39.0 Urinary tract infection, site not specified; I48.0 Paroxysmal atrial fibrillation; Z79.01 Long term (current) use of anticoagulants; I10 Essential (primary) hypertension; E78.5 Hyperlipidemia, unspecified; K21.9 Gastro-esophageal reflux disease without esophagitis; Z96.653 Presence of artificial knee joint, bilateral; G89.4 Chronic pain syndrome
CPT/HCPCS: 36415; 74176; 80048; 80053; 80074; 81001; 82274; 83690; 83735; 84443; 85025; 85027; 87086; 87269; 87272; 87493; 93005; 96361; 96365; 96366; 99285; A9270; G0378; J3480; J7040; J7120

== ENCOUNTER 2021-12-31 14:47 | Outpatient (CLI) | payer MEDICARE, BC, SELFPAY ==
[2021-12-31 15:33] LABS: Anion Gap 10 mmol/L (8-16); Blood Urea Nitrogen 9 mg/dL (7-17); Calcium 9.2 mg/dL (8.4-10.2); Carbon Dioxide 31 mmol/L (22-30); Chloride 98 mmol/L (98-107); Estimated Glomerular Filt Rate > 60; Glucose 122 mg/dL (65-110); Sodium 139 mmol/L (137-145)
== END 2021-12-31 14:48 | disposition home or self-care (01) ==
LOC: ANHLAB 14:49
PROVIDERS: PCP Family Medicine; Visit Provider Nurse Practitioner
DX: E87.6 Hypokalemia (principal)
CPT/HCPCS: 36415; 80048

== ENCOUNTER 2022-03-15 11:30 | Outpatient (CLI) | payer MEDICARE, BC, SELFPAY ==
--- NOTE | ~2022-03-15 | XR_ITS ---
EXAMINATION: XR abdomen/kub 1V INDICATION: Left ureteral stone TECHNIQUE: Supine views of the abdomen were obtained on 2 radiographs. COMPARISON: 12/11/2021 FINDINGS: No definite urolithiasis is identified. There are phleboliths of the pelvis. Cholecystectom y clips are noted. There are 20 degrees of lumbar levoscoliosis and severe lumbar spondylosis. The vi sualized lung bases are clear. There is mild osteoarthritis of the hips. IMPRESSION: 1. No urolithiasis identified. Reviewed, dictated and finalized at location L. [employer]ECT[employer]ER
== END 2022-03-15 11:31 | disposition home or self-care (01) ==
PROVIDERS: PCP Family Medicine; Visit Provider Urology
DX: N20.1 Calculus of ureter (principal)
CPT/HCPCS: 74018

== ENCOUNTER 2022-08-29 23:03 | Inpatient (IN) | payer MEDICARE, BC, SELFPAY ==
--- NOTE | ~2022-08-29 | XR_ITS ---
EXAMINATION: XR abdomen/kub 1V INDICATION: Kidney stone TECHNIQUE: Supine views of the abdomen were obtained on 2 radiographs. COMPARISON: CT from today FINDINGS: There is a 4 mm calcification projecting in the expected location of the right renal pelvis which could reflect the proximal ureteral stone described on the comparison CT. The bowel gas patter n is normal. Cholecystectomy clips are noted. There is mild osteoarthritis of the hips. Phleboliths a re noted in the left pelvis. IMPRESSION: 1. 4 mm calcification projecting at the expected location of the right renal pelvis, possibly reflect ing proximal ureteral stone described on the comparison CT. Reviewed, dictated and finalized at location L. IMPRESSION: 1. 4 mm calcification projecting at the expected location of the right renal pe lvis, possibly reflecting proximal ureteral stone described on the comparison C T.
--- NOTE | ~2022-08-29 | CT_ITS ---
Non-contrast CT scan of the Abdomen and Pelvis Clinical indication: Right kidney stone Technique: 2.5 mm axial scans were obtained through the abdomen and pelvis without intravenous or or al contrast. Dose reduction technique was used on this scan by utilizing automated exposure control a nd iterative reconstruction technique. The dose-length product (DLP) was 420.36 mGy-cm. COMPARISON: 12/27/2021 Findings: Images through the lung bases reveal no abnormalities. There is a 4.5 mm proximal right ureteral stone (axial image 82), with mild right hydronephrosis. No left renal or left ureteral stone. No left hydronephrosis. The liver, spleen, pancreas, and adrenals appear normal. Cholecystectomy clips are present. There are atherosclerotic calcifications of the aorta. There is no evidence of bowel obstruction. Images through the pelvis were performed. There is no evidence of ascites or lymphadenopathy. Urinary bladder unremarkable. No pelvic mass seen. Impression: 4.5 mm proximal right ureteral stone with mild right hydronephrosis. Reviewed, dictated and finalized at [facility]. Impression: 4.5 mm proximal right ureteral stone with mild right hydronephrosis.
[2022-08-29 23:05] VITALS: BP 153/87; PULSE 87; RESP 19; TEMP 36.6; O2SAT 98
[2022-08-29 23:40] LABS: Basophils Absolute Auto 0.1 K/mm3 (0.0-0.1); Basophils Percent Auto 0.8 % (0.2-1.2); Eosinophils Absolute Auto 0.3 K/mm3 (0-0.3); Eosinophils Percent Auto 2.1 % (0-4.4); Hematocrit 44.4 % (37.0-47.0); Hemoglobin 14.3 g/dL (12.0-15.0); Immature Granulocyte Absolute 0.07 K/mm3 (0.00-0.031); Immature Granulocyte Percent A 0.5 % (0-0.5); Lymphocytes Absolute Auto 3.07 K/mm3 (0.9-3.2); Lymphocytes Percent Auto 22.7 % (18.3-44.2); Mean Corpuscular HGB Conc 32.2 g/dl (32-36); Mean Corpuscular Hemoglobin 28.2 pg (26-34); Mean Corpuscular Volume 87.6 fl (80-100); Mean Platelet Volume 8.6 fl (7.4-10.4); Monocytes Absolute Auto 1.2 K/mm3 (0.1-0.6); Monocytes Percent Auto 9.2 % (2.6-8.5); Neutrophils Absolute Auto 8.7 K/mm3 (1.3-6.7); Neutrophils Percent Auto 64.7 % (45.5-73.1); Platelet Count Result 424 k/mm3 (150-375); Red Blood Count 5.07 M/mm3 (4.2-5.4); Red Cell Distribution Width 13.5 % (11.5-14.5); White Blood Count 13.5 K/mm3 (4.5-10.0)
[2022-08-29 23:41] LABS: Appearance Urine Cloudy (Clear); Bacteria Urine 1+ /hpf; Bilirubin Urine Negative (Negative); Blood Urine 3+ (Negative); Color Urine Yellow (Yellow); Glucose Urine UA Negative (Negative); Ketones Urine Negative (Negative); Leukocyte Esterase Ur 3+ LEU/UL (Negative); Nitrate Urine Negative (Negative); Non Pathogenic Casts 0-2; Protein Urine Negative (Negative); RBC Urine 51-100 /hpf (0-2); Specific Grav Ur 1.011 (1.001-1.035); Squamous Epithelial Cell Urine Moderate /hpf (Few); Urobilinogen Urine 0.2 mg/dL (<2.0); WBC Urine 51-100 /hpf; pH Urine 5.5 (5.0-9.0)
[2022-08-29 23:51] LABS: Add Urine Microscopic? YES
[2022-08-29 23:52] LABS: Alanine Aminotransferase 27 U/L (6-35); Albumin Level 4.5 g/dL (3.5-5.1); Alkaline Phosphatase 94 U/L (38-126); Anion Gap 7 mmol/L (8-16); Aspartate Amino Transferase 27 U/L (14-36); Bilirubin,Total 0.5 mg/dL (0.2-1.3); Blood Urea Nitrogen 14 mg/dL (7-17); Calcium 9.1 mg/dL (8.4-10.2); Carbon Dioxide 30 mmol/L (22-30); Chloride 101 mmol/L (98-107); Estimated Glomerular Filt Rate > 60; Glucose 123 mg/dL (65-110); Lipase 65 U/L (23-300); Potassium 3.8 mmol/L (3.4-5.0); Sodium 138 mmol/L (137-145)
[2022-08-30] VITALS (12 sets, daily range): BP systolic 115–180; BP diastolic 51–87; PULSE 78–102; RESP 16–20; TEMP 36.4–37; O2SAT 93–100; BMI 33.6
--- NOTE | 2022-08-30 01:20 | ED.GENADULT ---
HPI - General Adult General Chief complaint: Abdominal Pain Stated complaint: ABD PAIN Time Seen by Provider: 08/29/22 23:12 History of Present Illness HPI narrative: this is an 82-year-old female with history of kidney stones presenting ED with a chief complaint of right-sided flank pain. Patient says the flank pain started about 10:00 p.m.. Is sharp, wraps around her abdomen and fluctuates in intensity. Feels like when she has had kidney stones in the past. There are no exacerbating alleviating symptoms. She has had some nausea but no vomiting. No fever chills chest pain difficulty breathing or urinary symptoms. She has been taking hydrocodone for pain and has chronic pain issues at baseline. Related Data Home Medications Medication Instructions Recorded Confirmed hydrocodone 5 mg-acetaminophen 325 2 tablet PO Q6H PRN Pain 03/26/19 08/11/22 mg tablet meclizine 25 mg tablet 25 mg PO TID PRN Dizziness 03/26/19 08/11/22 metoprolol succinate 25 mg 12.5 mg PO QAM 03/26/19 08/11/22 tablet,extended release 24 hr glucosamine-chondroitin 250 mg-200 2 tablet PO DAILY 06/07/21 08/11/22 mg tablet (Osteo Bi-Flex) multivitamin with minerals-folic 1 tablet PO DAILY 06/07/21 08/11/22 acid 0.4 mg tablet omeprazole 20 mg capsule,delayed 20 mg PO DAILY PRN Indigestion 06/07/21 08/11/22 release rivaroxaban 20 mg tablet (Xarelto) 20 mg PO DAILY 06/07/21 08/11/22 Allergies Allergy/AdvReac Type Severity Reaction Status Date / Time nitrofurantoin Allergy Intermediate Diarrhea Verified 08/29/22 23:45 Sulfa (Sulfonamide Allergy Mild Unknown Verified 08/29/22 23:45 Antibiotics) adhesive tape Allergy Unknown SKIN TEARS Verified 08/29/22 23:45 Penicillins Allergy Unknown JAUNDICE Verified 08/29/22 23:45 Kokfcjo-QMF-[id number] Reductase AdvReac Intermediate LEG PAIN Verified 08/29/22 23:45 Inhibitor ibuprofen AdvReac Unknown Flushing Verified 08/29/22 23:45 PMFSH Past Medical History Medical History Anxiety Arthritis BMI 39.0-39.9,adult BMI 40.0-44.9, adult Chronic anticoagulation Chronic pain syndrome Depression Essential hypertension Fibromyalgia Mixed hyperlipidemia Paroxysmal atrial fibrillation Spinal stenosis Surgical History Surgical History History of benign breast biopsy History of cataract extraction with lens replacement History of cholecystectomy History of inguinal hernia repair History of left knee replacement History of right knee joint replacement History of tonsillectomy Family History Family History Mother Hypertension Cerebrovascular accident Sibling Carcinoma of colon Family history of coronary artery disease Father No problems noted. Other Diabetes mellitus Family history of malignant neoplasm Social History Social History Social History: Surrogate medical decision maker: Virgil Ramirez, friend. Code status: Full code Smoking status: Never smoker Second hand tobacco smoke exposure: No Alcohol intake: never Substance use: never Substance use type: does not use Lack of Transportation: No Lack of Food: Never True Current Housing: I Have Housing Concerned About Future Housing: No Difficulty Paying Gas/Electric Bills: No Difficulty Paying for Meds: No Currently Unemployed: No Education: High School Diploma/GED Difficulty w/ Childcare or Family Care: No Living arrangements: alone Additional living arrangements comments: Lives in her own home. She has 3 children. Ambulates with a cane. Occupation/Education: retired Additional occupation/education comments: [employer]. Spiritual care concerns: No (Roman Catholic) Exam Narrative: APPEARANCE: No apparent distress. Head: atraumatic.
[2022-08-30] MEDS: HYDROmorphone HCL INJ (*CRX) 1 MG/ML SYR 0.5 MG IV PUSH (01:26)
[2022-08-30] MEDS: ACETAMINOPHEN 500 MG TABLET 1000 MG PO (01:27)
[2022-08-30] MEDS: SODIUM CHLORIDE 0.9% IV 1,000 ML 999 ML IV CONT (02:07)
--- NOTE | 2022-08-30 03:11 | ADMGEN ---
This patient, Torri Flower, was admitted to 2 Medical Room 260-. Patient/family oriented to hospital policies and general routines including ID bracelet, bed and alarms, visiting hours, pain management, procedures, bathroom and other care routines, personal items, smoking policy, room service/diet, and visiting hours. Information on how to activate the Rapid Response Team has been discussed. Patient/Family are encouraged to report perceived risks to care and to ask questions if they do not understand what they are told or what they should do.
[2022-08-30] MEDS: LACTATED RINGERS 1,000 ML 125 ML IV CONT ×2 (08:56→17:32)
[2022-08-30] MEDS: FAMOTIDINE 20 MG/2 ML VIAL IV PUSH (08:57)
[2022-08-30] MEDS: ONDANSETRON INJ 4 MG/2 ML VIAL IV PUSH (09:06)
[2022-08-30] MEDS: DICYCLOMINE HCL 10 MG CAPSULE 20 MG PO ×4 (09:29→20:21)
--- NOTE | 2022-08-30 10:46 | PM.IMHP ---
H&P: HPI History of Present Illness Date/Time: 08/30/22 10:46 Chief Complaint: Rt sided flank pain Narrative: ED-HPI narrative: ?this is an 82-year-old female with history of kidney stones presenting ED with a chief complaint of right-sided flank pain.? Patient says the flank pain started about 10:00 p.m..? Is sharp, wraps around her abdomen and fluctuates in intensity.? Feels like when she has had kidney stones in the past.? There are no exacerbating alleviating symptoms.? She has had some nausea but no vomiting.? No fever chills chest pain difficulty breathing or urinary symptoms.? She has been taking hydrocodone for pain and has chronic pain issues at baseline. 82 y/o female with histroy of kidney stone presented with Rt flank pain and CT scan of abdomen showed There is a 4.5 mm proximal right ureteral stone (axial image 82), with mild right hydronephrosis. No left renal or left ureteral stone. No left hydronephrosis. Patient being hydrated and pain medication states feeling little better, seen by Urology and further recommendation to follow will continue to monitor. Patient admitted as observation status Review of Systems Review of Systems: Twelve systems were reviewed and are negative except for as per HPI. [facility] Past Medical History Medical History Anxiety Arthritis BMI 39.0-39.9,adult BMI 40.0-44.9, adult Chronic anticoagulation Chronic pain syndrome Depression Essential hypertension Fibromyalgia Mixed hyperlipidemia Paroxysmal atrial fibrillation Spinal stenosis Surgical History Surgical History History of benign breast biopsy History of cataract extraction with lens replacement History of cholecystectomy History of inguinal hernia repair History of left knee replacement History of right knee joint replacement History of tonsillectomy Family History Family History Mother Hypertension Cerebrovascular accident Sibling Carcinoma of colon Family history of coronary artery disease Father No problems noted. Other Diabetes mellitus Family history of malignant neoplasm Social History Social History Social History: Surrogate medical decision maker: Virgil Ramirez, friend. Code status: Full code Smoking status: Never smoker Second hand tobacco smoke exposure: No Alcohol intake: never Substance use: never Substance use type: does not use Lack of Transportation: No Lack of Food: Never True Current Housing: I Have Housing Concerned About Future Housing: No Difficulty Paying Gas/Electric Bills: No Difficulty Paying for Meds: No Currently Unemployed: No Education: High School Diploma/GED Difficulty w/ Childcare or Family Care: No Living arrangements: alone Additional living arrangements comments: Lives in her own home. She has 3 children. Ambulates with a cane. 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 care concerns: No Meds Home Medications and Allergies Home Medications Medication Instructions Recorded Confirmed Type hydrocodone 5 mg-acetaminophen 325 2 tablet PO Q6H PRN Pain (Scale 03/26/19 08/30/22 History mg tablet Score 4-6) meclizine 25 mg tablet 25 mg PO TID PRN Dizziness 03/26/19 08/30/22 History metoprolol succinate 25 mg 12.5 mg PO QAM 03/26/19 08/30/22 History tablet,extended release 24 hr ondansetron HCl 4 mg tablet 4 mg PO Q8H PRN nausea and 03/30/21 08/30/22 Rx vomiting #20 tabs glucosamine-chondroitin 250 mg-200 2 tablet PO DAILY 06/07/21 08/30/22 History mg tablet (Osteo Bi-Flex) multivitamin with minerals-folic 1 tablet PO DAILY 06/07/21 08/30/22 History acid 0.4 mg tablet omeprazole 20 mg capsule,del
[2022-08-30] MEDS: buPROPion HCL XL (24 HR) 150 MG TABCR PO (12:07)
[2022-08-30] MEDS: CELECOXIB 200 MG CAPSULE PO (12:07)
[2022-08-30] MEDS: busPIRone HCL 5 MG TABLET PO ×2 (12:07→18:20)
[2022-08-30] MEDS: THERAPEUTIC MULTIVITAMINS/MINERALS TAB (*BKC) 1 TABLET PO (12:07)
[2022-08-30] MEDS: busPIRone HCL 2.5 MG TABLET PO ×2 (12:07→18:20)
[2022-08-30] MEDS: METOPROLOL SUCCINATE EXT REL 12.5 MG TABCR PO (12:08)
--- NOTE | 2022-08-30 17:26 | WPDURCON ---
Assessment and Plan Assessment and plan (1) Kidney stone: Code(s): N20.0 - Calculus of kidney Status: Acute Assessment and Plan: Plan to push fluids, strain urine. She wishes to try to pass her stone. We will repeat a KUB in one week. Ok to discharge at any time per urology on oral antibiotics. Continue Tamsulosin. (2) Acute UTI: Code(s): N39.0 - Urinary tract infection, site not specified Status: Acute Assessment and Plan: Tailor antibiotics to culture results. Urology Consult Note HPI Date Seen: 08/30/22 Time Seen: 17:26 Requesting Physician: Tomeka Wheeler DO Primary Care Provider: John Mckeon MD Consult Narrative Reason for consult: Right Proximal Ureteral Stone Narrative: Torri Flower is a 82 year old female who presented to the ER early this morning for sharp abdominal pain on the right side that radiates to the right flank. This began yesterday and progressed throughout the night causing her to call 911 as she was unable to drive herself d/t the pain. A CT scan revealed a 4.5mm proximal ureteral stone that is visible on KUB. Her pain is now well controlled, WBC is 13.5, creatinine is 0.60, UA is suspicious for UTI urine culture is pending at this time and she is afebrile. She denies gross hematuria, dysuria or nausea/vomiting. She has a history of kidney stones and has been seen by Dr. Horton in the past. Review of Systems Cardiovascular: Cardiovascular: Reports no additional cardiovascular complaints Respiratory: Respiratory: Reports no additional respiratory complaints Gastrointestinal: Gastrointestinal: Reports abdominal pain, Denies nausea and Denies vomiting Genitourinary: Genitourinary: Reports no additional female genitourinary complaints [facility] Past Medical History Medical History Anxiety Arthritis BMI 39.0-39.9,adult BMI 40.0-44.9, adult Chronic anticoagulation Chronic pain syndrome Depression Essential hypertension Fibromyalgia Mixed hyperlipidemia Paroxysmal atrial fibrillation Spinal stenosis Surgical History Surgical History History of benign breast biopsy History of cataract extraction with lens replacement History of cholecystectomy History of inguinal hernia repair History of left knee replacement History of right knee joint replacement History of tonsillectomy Family History Family History Mother Hypertension Cerebrovascular accident Sibling Carcinoma of colon Family history of coronary artery disease Father No problems noted. Other Diabetes mellitus Family history of malignant neoplasm Social History Social History Social History: Surrogate medical decision maker: Virgil Ramirez, friend. Code status: Full code Smoking status: Never smoker Second hand tobacco smoke exposure: No Alcohol intake: never Substance use: never Substance use type: does not use Lack of Transportation: No Lack of Food: Never True Current Housing: I Have Housing Concerned About Future Housing: No Difficulty Paying Gas/Electric Bills: No Difficulty Paying for Meds: No Currently Unemployed: No Education: High School Diploma/GED Difficulty w/ Childcare or Family Care: No Living arrangements: alone Additional living arrangements comments: Lives in her own home. She has 3 children. Ambulates with a cane. Occupation/Education: retired Additional occupation/education comments: [employer]. Spiritual care concerns: No Meds Home Medications and Allergies Home Medications Medication Instructions Recorded Confirmed Type hydrocodone 5 mg-acetaminophen 325 2 tablet PO Q6H PRN Pain (Scale 03/26/19 08/30/22 History mg tabl
[2022-08-30] MEDS: TAMSULOSIN HCL 0.4 MG CAPSULE PO (20:23)
[2022-08-30] MEDS: DULoxetine HCL 30 MG CAPSULE.DR PO (20:23)
[2022-08-30] MEDS: DULoxetine HCL 60 MG CAPSULE.DR PO (20:23)
[2022-08-31] VITALS: PULSE 82
[2022-08-31 04:00] VITALS: PULSE 84
[2022-08-31 05:02] VITALS: BP 156/71; PULSE 95; RESP 20; TEMP 36.5; O2SAT 92
[2022-08-31 05:43] LABS: Hematocrit 38.5 % (37.0-47.0); Hemoglobin 12.2 g/dL (12.0-15.0); Mean Corpuscular HGB Conc 31.7 g/dl (32-36); Mean Corpuscular Hemoglobin 28.2 pg (26-34); Mean Corpuscular Volume 88.9 fl (80-100); Mean Platelet Volume 8.9 fl (7.4-10.4); Platelet Count Result 325 k/mm3 (150-375); Red Blood Count 4.33 M/mm3 (4.2-5.4); Red Cell Distribution Width 13.5 % (11.5-14.5)
[2022-08-31 05:56] LABS: Anion Gap 0 mmol/L (8-16); Blood Urea Nitrogen 10 mg/dL (7-17); Carbon Dioxide 37 mmol/L (22-30); Chloride 100 mmol/L (98-107); Estimated CRCL calculation 81 ml/min; Estimated Glomerular Filt Rate > 60; Glucose 100 mg/dL (65-110); Sodium 137 mmol/L (137-145)
[2022-08-31] MEDS: DICYCLOMINE HCL 10 MG CAPSULE 20 MG PO ×2 (06:48→12:00)
[2022-08-31] MEDS: LACTATED RINGERS 1,000 ML 125 ML IV CONT (06:48)
[2022-08-31 08:00] VITALS: PULSE 74
[2022-08-31 08:17] VITALS: PULSE 95
[2022-08-31] MEDS: busPIRone HCL 2.5 MG TABLET PO ×2 (08:17→12:03)
[2022-08-31] MEDS: METOPROLOL SUCCINATE EXT REL 12.5 MG TABCR PO (08:17)
[2022-08-31] MEDS: busPIRone HCL 5 MG TABLET PO ×2 (08:17→12:03)
[2022-08-31] MEDS: TAMSULOSIN HCL 0.4 MG CAPSULE PO (08:18)
[2022-08-31] MEDS: CELECOXIB 200 MG CAPSULE PO (08:18)
[2022-08-31] MEDS: THERAPEUTIC MULTIVITAMINS/MINERALS TAB (*BKC) 1 TABLET PO (08:19)
[2022-08-31] MEDS: buPROPion HCL XL (24 HR) 150 MG TABCR PO (08:20)
[2022-08-31] MEDS: FAMOTIDINE 20 MG/2 ML VIAL IV PUSH (10:10)
--- NOTE | 2022-08-31 11:47 | PM.DS ---
DS: Admitting Diagnosis Discharge Date 08/31/2022 Admitting Diagnosis Right-sided flank pain DS: Discharge Diagnosis Discharge Diagnosis (1) Kidney stone: Code(s): N20.0 - Calculus of kidney Status: Acute Assessment and Plan: ED-[facility] narrative: ?this is an 82-year-old female with history of kidney stones presenting ED with a chief complaint of right-sided flank pain.? Patient says the flank pain started about 10:00 p.m..? Is sharp, wraps around her abdomen and fluctuates in intensity.? Feels like when she has had kidney stones in the past.? There are no exacerbating alleviating symptoms.? She has had some nausea but no vomiting.? No fever chills chest pain difficulty breathing or urinary symptoms.? She has been taking hydrocodone for pain and has chronic pain issues at baseline. 82 y/o female with histroy of kidney stone presented with Rt flank pain and CT scan of abdomen showed There is a 4.5 mm proximal right ureteral stone (axial image 82), with mild right hydronephrosis. No left renal or left ureteral stone. No left hydronephrosis. Patient being hydrated and pain medication states feeling little better, seen by Urology and further recommendation to follow will continue to monitor. (2) Acute UTI: Code(s): N39.0 - Urinary tract infection, site not specified Status: Acute Assessment and Plan: Patient with UTI being treated with a ceftriaxone will continue and monitor urine culture (3) Paroxysmal atrial fibrillation: Code(s): I48.0 - Paroxysmal atrial fibrillation Status: Acute Assessment and Plan: Rate is controlled with beta-sean and anticoagulated with Xarelto, will hold Xarelto for kidney stone (4) Chronic pain syndrome: Code(s): G89.4 - Chronic pain syndrome Status: Acute Assessment and Plan: Will continue home regimen DS: Summary Hospital Course Reason for hospitalization: this is an 82-year-old female with history of kidney stones presenting ED with a chief complaint of right-sided flank pain.? Patient says the flank pain started about 10:00 p.m..? Is sharp, wraps around her abdomen and fluctuates in intensity.? Feels like when she has had kidney stones in the past.? There are no exacerbating alleviating symptoms.? She has had some nausea but no vomiting.? No fever chills chest pain difficulty breathing or urinary symptoms.? She has been taking hydrocodone for pain and has chronic pain issues at baseline. 82 y/o female with history of kidney stone presented with Rt flank pain and CT scan of abdomen showed?There is a 4.5 mm proximal right ureteral stone (axial image 82), with mild right hydronephrosis. No left renal or left ureteral stone. No left hydronephrosis.? Patient being hydrated and pain medication states feeling little better, seen by Urology and further recommendation to follow will continue to monitor. Hospital Course: 82 y/o female with history of kidney stone presented with Rt flank pain and CT scan of abdomen showed?There is a 4.5 mm proximal right ureteral stone (axial image 82), with mild right hydronephrosis. No left renal or left ureteral stone. No left hydronephrosis.? Patient being hydrated and pain medication states feeling little better, seen by Urology and further recommendation to follow will continue to monitor. Patient was seen by Urology, patient has decided to pass the stone on her own, and will follow-up with urology in 1 week to further evaluation, patient is clinically stable will discharge the patient today Time Spent with Patient Time attestation: Total time spent providing and/or coordinating discharge services: Exam Narrative: Morbidly obese Patient is comfortable, NAD HEENT: eyes are clear and none icteric LUNGS: Normal respiratory effort ABD: Not distended Lower extremities: no edema SKIN: nonjaundiced Neuro: grossly intact. DS: Data Data Completed and Pending Labs on day of discharge: Labs from [facility]
== END 2022-08-31 14:25 | disposition home or self-care (01) | DRG 690 ==
LOC: ANHED 08-30 01:52 → ANH2MED 08-30 02:39
PROVIDERS: Admitting Provider Internal Medicine; Emergency Provider Emergency Medicine; PCP Family Medicine; Visit Provider Family Medicine
DX: N13.6 Pyonephrosis (principal); I48.0 Paroxysmal atrial fibrillation; I10 Essential (primary) hypertension; E78.2 Mixed hyperlipidemia; M48.00 Spinal stenosis, site unspecified; M79.7 Fibromyalgia; G89.4 Chronic pain syndrome; F32.A Depression, unspecified; F41.9 Anxiety disorder, unspecified; Z96.653 Presence of artificial knee joint, bilateral; Z79.01 Long term (current) use of anticoagulants; Z87.442 Personal history of urinary calculi
CPT/HCPCS: 36415; 74018; 74176; 80048; 80053; 81001; 83690; 85025; 85027; 87086; 87088; 96365; 96375; 99285; A9270; J0696; J1170; J2405; J7030; J7120

== ENCOUNTER 2022-09-08 15:06 | Outpatient (CLI) | payer MEDICARE, BC, SELFPAY ==
--- NOTE | ~2022-09-08 | XR_ITS ---
EXAMINATION: XR abdomen/kub 1V DATE: 09/08/2022 15:31 INDICATION: Calculus of kidney. TECHNIQUE: A supine view of the abdomen on 2 radiographs was obtained. COMPARISON: Abdomen radiographs 08/30/2022, CT abdomen and pelvis 08/30/2022 FINDINGS: There are no dilated loops of bowel. Surgical clips overlie the abdomen. There are phleboli ths in left pelvis. There is a 5 mm density in the area of proximal right ureter at L3-L4. IMPRESSION: 1. 5 mm density in the area of proximal right ureter at L3-L4 which may be a stone. Reviewed, dictated and finalized at location A. IMPRESSION: 1. 5 mm density in the area of proximal right ureter at L3-L4 which may be a st one.
== END 2022-09-08 15:07 | disposition home or self-care (01) ==
PROVIDERS: PCP Family Medicine; Visit Provider Nurse Practitioner Adult Health
DX: N20.1 Calculus of ureter (principal)
CPT/HCPCS: 74018

== ENCOUNTER 2022-09-14 11:21 | Outpatient (CLI) | payer MEDICARE, BC, SELFPAY ==
--- NOTE | ~2022-09-14 | CT_ITS ---
EXAMINATION: CT abdomen pelvis wo con DATE: 09/14/2022 11:48 INDICATION: Left ureteral stone TECHNIQUE: Computed tomography (CT) of the abdomen and pelvis was performed without intravenous contr ast. Automated exposure control and iterative reconstruction technique were employed. The dose-length product was 305.42 mGy-cm. COMPARISON: CT dated 09/14/2022 FINDINGS: Lung bases are clear. Heart size is normal. No pericardial or pleural effusion. Cholecystectomy clips at the gallbladder fossa and likely dropped clip anteriorly in the upper pelvis. Liver, spleen, panc reas, bilateral adrenal glands and kidneys are normal. Interval advancement of a 3 to 4 mm right uret eral stone now seen at the distal right ureter. No hydroureteronephrosis or other urolithiasis. Uncha nged pattern of a few phleboliths in the left hemipelvis. Bowels including the appendix are normal. B ladder, uterus and bilateral adnexa are unremarkable. No free intraperitoneal gas or fluid. No pathol ogically enlarged abdominal or pelvic lymphadenopathy. Lumbar levoscoliosis with severe spondylosis. IMPRESSION: 1. Advancement of a 3-4 mm right ureteral stone on the distal right ureter but without hydronephrosis . No left-sided urolithiasis. Reviewed, dictated and finalized at location A. IMPRESSION: 1. Advancement of a 3-4 mm right ureteral stone on the distal right ureter but without hydronephrosis. No left-sided urolithiasis.
--- NOTE | ~2022-09-14 | XR_ITS ---
EXAMINATION: XR abdomen/kub 1V INDICATION: Ureteral stone stone TECHNIQUE: Supine views of the abdomen were obtained on 2 radiographs. COMPARISON: 09/08/2022; CT from today FINDINGS: The right distal ureteral stone seen on CT is not definitely identified. There are phleboli ths of the pelvis. Cholecystectomy clips are noted. The visualized lung bases are clear. There is sev ere lumbar spondylosis. IMPRESSION: 1. Known right distal ureteral stone not definitely identified. Reviewed, dictated and finalized at location B.
== END 2022-09-14 11:22 | disposition home or self-care (01) ==
PROVIDERS: PCP Family Medicine; Visit Provider Urology
DX: N20.1 Calculus of ureter (principal)
CPT/HCPCS: 74018; 74176

== ENCOUNTER 2022-09-15 13:42 | Day surgery (SDC) | payer MEDICARE, BC, SELFPAY ==
--- NOTE | ~2022-09-15 | XR_ITS ---
EXAMINATION: XR retrograde pyelo w/stent RT DATE: 09/15/2022 15:48 INDICATION: Right ureteral stone TECHNIQUE: 3 fluoroscopic images of the abdomen and upper pelvis were obtained during procedure perfo rmed by Dr. Darden. Radiologist was not present for the imaging or procedure. The amount of fluoros copy time used during this procedure was 2.1 minutes. COMPARISON: None. FINDINGS: Resistance to cannulation of the distal right ureter with a wire advanced into the right renal collec ting system. Retrograde contrast as patient the right ureter and right renal collecting system demons trate mild right hydronephrosis. The stone seen on prior CT in the distal ureter is nonvisualized and was reportedly extracted. Final image demonstrates placement of a right internal ureteral stent with proximal loop formed in the right renal pelvis. Lumbar levoscoliosis with severe spondylosis. IMPRESSION: 1. Right internal ureteral stent placement in expected position. See procedure note for further detai l. Reviewed, dictated and finalized at location A. IMPRESSION: 1. Right internal ureteral stent placement in expected position. See procedure note for further detail.
[2022-09-15 09:31] VITALS: BMI 33.3
--- NOTE | 2022-09-15 09:44 | PC.NURSE ---
Report to the Outpatient Waiting Room, entrance under the green pavilion located off [facility], at time __1 PM on date __09/15/22 . Planned Procedure Time: __3 PM . Time changes happen often and if your time is changed the preop area will call you the afternoon before. - You and your visitor will be asked to self-screen and do not enter if you have any COVID symptoms. - A mask is optional within the hospital at this time. Patients may have clear liquids (water, carbonated beverages, clear teas, apple juice) until 3 hours prior to surgery (1200) with a maximum of 20 ounces. - No food from midnight until time of surgery - Infants may have breast milk until 4 hours before surgery, infant formula 6 hours prior to surgery. - Children will be allowed to drink immediately following surgery. If applicable, please bring a bottle or sippy cup to assist with drinking. Juice, water, soda, and popsicles are readily available. For infants on formula, please bring formula the day of surgery. Pacifiers are allowed. Take the following medications with a SIP of water the morning of surgery: ___PAIN PILL IF NEEDED - PT STATES OUT OF MEDS @ THIS TIME EXCEPT PAIN PILLS DO NOT STOP ANY OF YOUR OTHER PRESCRIPTION MEDICATIONS PRIOR TO SURGERY ?EXCEPT THE FOLLOWING Medications to discontinue per physician Date to take last dose Please no make-up, nail french, hairspray, perfume, deodorant, or body powder the day of surgery. No jewelry (including any body piercings) or valuables the day of surgery, leave them at home. Please take a shower or bath the night before, or the morning of, surgery with an antibacterial soap. Wear comfortable, loose fitting clothing. Children are encouraged to wear pajamas. - Jewelry must be removed prior to entering the operating room. Rings and piercings that are not removed may be cut off. - The hospital will not accept responsibility for valuables. - Please leave all valuables, including medications, at home the day of surgery. If you are going home after surgery, a licensed school bus driver/mechanic must drive you home. - NO public transportation without another adult if you receive anesthesia. - We recommend that an adult stay with you for 24 hours following discharge. - We also recommend that you do not drive, make important decision, drink alcoholic beverages, or take any drugs that were not prescribed by your health care provider for at least 24 hours after your discharge time. For Pediatric surgeries, we recommend two adults accompany the child home. Follow any additional instructions given to you from your surgeon. If you or anyone in your household have experienced Covid symptoms in the past week, please notify your surgeon or the nurse liaison at the phone number below for possible testing. Telephone instructions given to ____PT and asked if any additional questions and then verbalized understanding. Patient advised to call surgeon office or pre surgery nurse liaison [phone] if any additional questions.
[2022-09-15] MEDS: LACTATED RINGERS 1,000 ML 30 ML IV CONT (13:54)
[2022-09-15 13:55] VITALS: BP 120/74; PULSE 88; RESP 18; TEMP 36.7; O2SAT 100
--- NOTE | 2022-09-15 14:02 | WPDANESEPPF ---
Anes - Initial Pre Proc Eval Procedure: Operation Date: 09/15/22 15:00 Proposed Procedures p Cystoscopy, Right Ureteroscopy, Right Retrograde Pyelogram, Possible Right Stone Extraction, Possible Right Stent Placement, Possible Holmium Laser - Bobo Darden MD Date/Time: 09/15/22 14:02 Surgeon: Bobo Darden MD Pre Op Diagnosis: right ureteral stone Patient Data Age: 82 Gender: F Height: 1.64 m Weight: 88.5 kg Allergies Allergy/AdvReac Type Severity Reaction Status Date / Time nitrofurantoin Allergy Intermediate Diarrhea Verified 09/15/22 13:18 Sulfa (Sulfonamide Allergy Mild Nausea and Verified 09/15/22 13:18 Antibiotics) Vomiting adhesive tape Allergy Unknown SKIN TEARS Verified 09/15/22 13:18 Penicillins Allergy Unknown JAUNDICE Verified 09/15/22 13:18 Bhgoyle-ZXQ-PlW Reductase AdvReac Intermediate LEG PAIN Verified 09/15/22 13:18 Inhibitor ibuprofen AdvReac Unknown Flushing Verified 09/15/22 13:18 Home Medications Medication Instructions Recorded Confirmed Type glucosamine-chondroitin 250 mg-200 2 tablet PO DAILY 06/07/21 09/15/22 History mg tablet (Osteo Bi-Flex) multivitamin with minerals-folic 1 tablet PO DAILY 06/07/21 09/15/22 History acid 0.4 mg tablet omeprazole 20 mg capsule,delayed 20 mg PO DAILY PRN Indigestion 06/07/21 09/15/22 History release kdjyxdhlii-wfbccqextahqc-qkomijtw 1 tablet PO Q4H PRN Headache #120 05/10/22 09/15/22 Rx 50 mg-325 mg-40 mg tablet tabs hydrocodone 5 mg-acetaminophen 325 1 tablet PO Q4H PRN Pain Rated 4-6 08/31/22 09/15/22 Rx mg tablet #12 tabs bupropion HCl 150 mg 24 hr tablet, 150 mg PO QAM #90 tabs 09/14/22 09/15/22 Rx extended release (Wellbutrin XL) buspirone 7.5 mg tablet 7.5 mg PO TID #270 tabs 09/14/22 09/15/22 Rx dicyclomine 20 mg tablet 20 mg PO QID PRN Abdominal 09/14/22 09/15/22 Rx Discomfort #120 tabs duloxetine 30 mg capsule,delayed 30 mg PO HS #90 caps 09/14/22 09/15/22 Rx release duloxetine 60 mg capsule,delayed 60 mg PO HS #90 caps 09/14/22 09/15/22 Rx release metoprolol succinate 25 mg 12.5 mg PO QAM #30 tabs 09/14/22 09/15/22 Rx tablet,extended release 24 hr Patient hx anesthesia problems: none Family hx anesthesia problems: none Results Review: All pre-operative results and documents have been reviewed as part of the pre-operative evaluation. [facility] Past Medical History Medical History Anxiety Arthritis BMI 39.0-39.9,adult BMI 40.0-44.9, adult Chronic anticoagulation Chronic pain syndrome Depression Essential hypertension Fibromyalgia Mixed hyperlipidemia Paroxysmal atrial fibrillation Spinal stenosis Surgical History Surgical History History of benign breast biopsy History of cataract extraction with lens replacement History of cholecystectomy History of inguinal hernia repair History of left knee replacement History of right knee joint replacement History of tonsillectomy Family History Family History Mother Hypertension Cerebrovascular accident Sibling Carcinoma of colon Family history of coronary artery disease Father No problems noted. Other Diabetes mellitus Family history of malignant neoplasm Social History Social History Social History: Surrogate medical decision maker: Virgil Ramirez, friend. Code status: Full code Smoking status: Never smoker Second hand tobacco smoke exposure: No Alcohol intake: never Substance use: never Substance use type: does not use Lack of Transportation: No Lack of Food: Never True Current Housing: I Have Housing Concerned About Future Housing: No Difficulty Paying Gas/Electric Bills: No Difficulty Paying for Meds: No Currently Unemplo
--- NOTE | 2022-09-15 15:11 | WPDHPUPDATE1 ---
History and Physical Update Update Date/Time: 09/15/22 15:11 History and Physical has been reviewed, including an updated exam of the patient. There are NO changes in the patient's condition. Risks, benefits, and alternatives have been discussed and questions answered. Patient agrees to proceed with procedure. Proceed iwth cysto, right retrograde, right ureteroscopy with stone extraction, possible laser, stent.
[2022-09-15] MEDS: ceFAZolin 2 GM/D5W 50 ML 2 GM/50 ML BAG IVPB (15:18)
[2022-09-15] MEDS: LIDOCAINE HCL 2% GEL UROJET 10 ML PKG MUCOUS MEM (15:45)
--- NOTE | 2022-09-15 15:47 | P.OP_ITS ---
Procedure Note - Detailed Date of Procedure 09/15/22 Pre-op Diagnosis right ureteral stone Post-op Diagnosis Same Procedure Performed Cystoscopy, right retrograde pyelogram, right ureteroscopy with stone extraction, right ureteral stent placement 4.8 Georgian contour Surgeon Bobo Darden MD Anesthesia General Description of Procedure Patient is taken to the operative suite correctly identified. Once anesthesia was obtained she was placed in dorsal lithotomy position and prepped and draped usual sterile fashion. Twenty-two Georgian scope inserted the bladder. There were no tumors noted. The right ureteral orifice was cannulated with a guidewire. I dilated the orifice using an 8/10 dilator. Rigid ureteral scope was then inserted. Using escape basket retrieved the stone. It actually broke into several pieces. These were all retrieved and sent for analysis. Reinspection revealed no residual stone. Pyelogram was then performed to confirm placement of the stent. 4.8 Georgian contour stent was then placed with the proximal end coiled in the renal pelvis and the distal in the bladder. Artemio dder was drained. 2% viscous lidocaine was inserted into the urethra patient is taken recovery stable condition. Patient will follow-up in a week's time for stent removal. Please send a copy of this operative note to my office Estimated Blood Loss 0 Drains Yes Packing No Pathology Yes Complications No immediate complications Condition Stable Disposition PACU
[2022-09-15 15:52] VITALS: BP 165/87; PULSE 93; RESP 18; TEMP 36.6; O2SAT 100
[2022-09-15 15:55] VITALS: BP 118/85; PULSE 88; RESP 14; O2SAT 100
[2022-09-15] MEDS: fentaNYL CITRATE INJ (*CRX) 100 MCG/2 ML VIAL 25 MCG IV PUSH ×2 (16:00→16:02)
[2022-09-15 16:10] VITALS: BP 163/84; PULSE 87; RESP 18; O2SAT 98
[2022-09-15 16:19] VITALS: BP 139/65; PULSE 90; RESP 16
[2022-09-15 16:45] VITALS: BP 148/70; PULSE 95; RESP 16
[2022-09-15] MEDS: oxyCODONE HCL (*CRX) 5 MG TAB IR PO (16:48)
== END 2022-09-15 17:15 | disposition home or self-care (01) ==
PROVIDERS: PCP Family Medicine; Visit Provider Urology
PROC: (CPT 52352; principal; 2022-09-15 15:00)
DX: N20.1 Calculus of ureter (principal); I10 Essential (primary) hypertension; I48.0 Paroxysmal atrial fibrillation; E78.2 Mixed hyperlipidemia; M79.7 Fibromyalgia; F41.9 Anxiety disorder, unspecified; F32.A Depression, unspecified; G89.4 Chronic pain syndrome; Z79.891 Long term (current) use of opiate analgesic; E66.9 Obesity, unspecified; Z68.33 Body mass index [BMI] 33.0-33.9, adult
CPT/HCPCS: 52332; 52352; 74420; 82365; 88300; A9270; C1758; C1769; C2617; J0690; J1100; J2405; J2704; J3010; J7120; Q9966

== ENCOUNTER 2022-10-28 13:51 | Outpatient (CLI) | payer MEDICARE, BC, SELFPAY ==
--- NOTE | ~2022-10-28 | XR_ITS ---
XR shoulder LT min 2V 10/28/2022 14:16 Indication: Chronic left shoulder pain Procedure: 4 views left shoulder Comparison: 02/24/2020 Findings: There is mild-moderate polyarticular osteoarthritis of the left shoulder. There is chondroc alcinosis. No acute fracture or traumatic malalignment. No foreign bodies. Impression: 1: Mild-moderate polyarticular osteoarthritis. Reviewed, dictated and finalized at location B. Impression: 1: Mild-moderate polyarticular osteoarthritis.
--- NOTE | ~2022-10-28 | XR_ITS ---
XR shoulder RT min 2V 10/28/2022 14:16 Indication: Chronic right shoulder pain Procedure: 4 views right shoulder Comparison: No prior studies for comparison. Findings: There is moderate osteoarthritis of the right shoulder involving the acromioclavicular and glenohumeral joints. Osteopenia. No fracture or traumatic malalignment. No significant soft tissue ab normality. No foreign bodies. Impression: 1: Moderate polyarticular osteoarthritis. Reviewed, dictated and finalized at location B. Impression: 1: Moderate polyarticular osteoarthritis.
== END 2022-10-28 13:52 | disposition home or self-care (01) ==
PROVIDERS: PCP Family Medicine; Visit Provider Physical Medicine & Rehabilitation
DX: M25.512 Pain in left shoulder (principal); M25.511 Pain in right shoulder; M19.012 Primary osteoarthritis, left shoulder; M19.011 Primary osteoarthritis, right shoulder
CPT/HCPCS: 73030

== ENCOUNTER 2023-04-04 10:02 | Outpatient (CLI) | payer MEDICARE, BC, SELFPAY ==
--- NOTE | ~2023-04-04 | XR_ITS ---
Left Hand Technique: PA, oblique, and lateral views were obtained. Clinical History: Pain COMPARISON: 12/08/2020 Findings: There is an acute, intra-articular, mildly displaced fracture of the radial styloid process . Age-indeterminate probable triquetral fracture seen dorsally on the lateral view. No fracture seen in the hand itself. Remaining osseous structures are intact. Joint spaces are preserved. Soft tissues are unremarkable. Impression: Acute, intra-articular, mildly displaced fracture the radial styloid process. Age indeterminate probably dorsal triquetral fracture on the lateral view. Reviewed, dictated and finalized at location . [employer] Impression: Acute, intra-articular, mildly displaced fracture the radial styloid process. Age indeterminate probably dorsal triquetral fracture on the lateral view.
== END 2023-04-04 10:03 | disposition home or self-care (01) ==
LOC: ANHIMG 10:05
PROVIDERS: PCP Family Medicine; Visit Provider Physician Assistant Medical
DX: S52.512A Displaced fracture of left radial styloid process, initial encounter for closed fracture (principal); W19.XXXA Unspecified fall, initial encounter
CPT/HCPCS: 73130

== ENCOUNTER 2023-04-28 15:23 | Outpatient (CLI) | payer MEDICARE, BC, SELFPAY ==
--- NOTE | ~2023-04-28 | CT_ITS ---
EXAMINATION: CT wrist LT wo con DATE: 04/28/2023 15:59 INDICATION: Displaced fracture of the left radial styloid process TECHNIQUE: High resolution computed tomography (CT) of the left wrist was performed without intraveno us contrast. Additional sagittal and coronal reconstructions were performed. At the request of the [facility] physician additional rotating 3-D surface rendered images of the right wrist were created. Th e dose-length product was 436.85 mGy-cm. COMPARISON: Radiographs dated 04/04/2023 FINDINGS: Comminuted mildly displaced intra-articular fracture of the left radial styloid process. The styloid processes divided into 2 larger fractures, a smaller fragment comprising the dorsal rim of the distal articular surface of the scaphoid fossa which is minimally displaced and a larger volar sided fragme nt which includes a large portion of the articular surface which is displaced approximately 4-5 mm vo lar and radially. There is also some depression along the volar rim were there is a 3 mm step-off weston ng the articular cortex. There is a concavity to the bone along the proximal margin of the fracture w hich is not appear to correspond to the distal fracture margin suggesting this could present an under lying pre-existing degenerative geode or impaction with secondary compaction of the trabecula along t he proximal fracture margin. Additional mildly comminuted fractures at the dorsal triquetrum with up to 4 mm dorsal displacement o f a couple very small fracture fragments. No other acute fractures identified. 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 Additiona l polyarticular osteoarthritis, moderate severity at the first interphalangeal joint and mild at the distal radioulnar, triscaphe and at the remaining carpal metacarpal and metacarpophalangeal joints. T here is a small fluid collection surrounding the extensor tendons in the first dorsal compartment whi ch extend across the radial styloid fracture fragments suggesting secondary tenosynovitis. There appe ars to be significant likely chronic fatty atrophy of a portion of the thenar musculature which is of indeterminate etiology IMPRESSION: 1. Mildly displaced comminuted intra-articular fracture of the radial styloid process. 2. Additional mildly displaced mildly comminuted fractures at the dorsum of the triquetrum. 3. 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 4. Significantly increased fluid in the first dorsal compartment along the extensor pollicis brevis a nd abductor pollicis longus tendons which pass over the site of fracture suggesting secondary tenosyn ovitis. 5. Likely chronic fatty atrophy of portion of the musculature of the thenar eminence which is of inde terminate etiology. Reviewed, dictated and finalized at location A. CAR WHACKER IMPRESSION: 1. Mildly displaced comminuted intra-articular fracture of the radial styloid p rocess. 2. Additional mildly displaced mildly comminuted fractures at the dorsum of the triquetrum. 3. Likely chronic scapholunate ligament tear with severe osteoarthritis at the radiocarpal articulations consistent with secondary scapholunate advanced colla pse (SLAC) wrist. 4. Significantly increased fluid in the first dorsal compartment along the exte nsor pollicis brevis and abductor pollicis longus tendons which pass over the s ite of fracture suggesting secondary tenosynovitis. 5. Likely chronic fatty atrophy of portion of the musculature of the thenar марина nence which is of indeterminate etiology.
== END 2023-04-28 15:24 | disposition home or self-care (01) ==
PROVIDERS: PCP Family Medicine; Visit Provider Plastic Surgery
DX: S52.512A Displaced fracture of left radial styloid process, initial encounter for closed fracture (principal); S62.112A Displaced fracture of triquetrum [cuneiform] bone, left wrist, initial encounter for closed fracture; M19.032 Primary osteoarthritis, left wrist; X58.XXXA Exposure to other specified factors, initial encounter
CPT/HCPCS: 73200

== ENCOUNTER 2023-06-19 13:19 | Outpatient (CLI) | payer MEDICARE, BC, SELFPAY ==
--- NOTE | ~2023-06-19 | CT_ITS ---
EXAMINATION: CT thoracic spine wo con DATE: 06/19/2023 13:52 INDICATION: Low back pain. TECHNIQUE: Computed tomography (CT) of the thoracic spine was performed without intravenous contrast. Automated exposure control and iterative reconstruction technique were employed. The dose-length pro duct was 496.42 mGy-cm. COMPARISON: None FINDINGS: There is 3 degrees dextrocurvature of thoracic spine. There is mild chronic anterior wedgin g of T7-T11 vertebral bodies. There are bridging endplate osteophytes from T3 to T9, consistent with diffuse idiopathic skeletal hyperostosis (DISH). There is multilevel facet joint osteoarthritis, rylan re at many levels in upper thoracic spine. On the right, there is moderate neural foraminal stenosis at T1-T2. On the left, there is moderate neural foraminal stenosis at T4-T5. There is multilevel mild neural foraminal stenosis bilaterally. There is mild central canal stenosis at T2-T3, T3-T4, T4-T5, T6-T7, T7-T8, T8-T9, and T9-T10, T11-T12, and T12-L1. IMPRESSION: 1. Mild thoracic spondylosis. 2. DISH. Reviewed, dictated and finalized at location E.
== END 2023-06-19 13:20 | disposition home or self-care (01) ==
PROVIDERS: PCP Family Medicine; Visit Provider Physical Medicine & Rehabilitation Pain Medicine
DX: M43.04 Spondylolysis, thoracic region (principal); M48.14 Ankylosing hyperostosis [Forestier], thoracic region
CPT/HCPCS: 72128; J2704

== ENCOUNTER 2023-10-18 10:58 | Outpatient (CLI) | payer MEDICARE, BC, SELFPAY ==
--- NOTE | ~2023-10-18 | XR_ITS ---
XR hip BI 2V w AP pelvis Ordering provider: Palmira Bailey, PAC History: . oosteoarthritis of hip, left hip worse than right, mult fall . Comparison: None. FINDINGS: BONES: No acute fracture or dislocation. HIP JOINT SPACES: Narrowing of the joint spaces with marginal size. SACROILIAC JOINT SPACES/LUMBAR SPINE: The sacroiliac joint spaces are normal. Mild degenerative no es of the visualized lower lumbar spine. PUBIC SYMPHYSIS: Pubic symphysitis. SOFT TISSUES: Normal. IMPRESSION: No acute osseous abnormality of the bilateral hips and pelvis. Moderate osteoarthritic changes of both hips. Reviewed, dictated and finalized at location A.
[2023-10-18 11:18] LABS: Basophils Absolute Auto 0.1 K/mm3 (0.0-0.1); Basophils Percent Auto 0.8 % (0.2-1.2); Eosinophils Absolute Auto 0.2 K/mm3 (0-0.3); Eosinophils Percent Auto 2.2 % (0-4.4); Hematocrit 39.7 % (37.0-47.0); Immature Granulocyte Absolute 0.03 K/mm3 (0.00-0.031); Immature Granulocyte Percent A 0.3 % (0-0.5); Lymphocytes Absolute Auto 4.45 K/mm3 (0.9-3.2); Lymphocytes Percent Auto 42.7 % (18.3-44.2); Mean Corpuscular HGB Conc 32.7 g/dl (32-36); Mean Corpuscular Volume 88.4 fl (80-100); Mean Platelet Volume 8.7 fl (7.4-10.4); Monocytes Absolute Auto 1.1 K/mm3 (0.1-0.6); Monocytes Percent Auto 10.2 % (2.6-8.5); Neutrophils Absolute Auto 4.6 K/mm3 (1.3-6.7); Neutrophils Percent Auto 43.8 % (45.5-73.1); Platelet Count Result 357 k/mm3 (150-375); Red Blood Count 4.49 M/mm3 (4.2-5.4); Red Cell Distribution Width 13.2 % (11.5-14.5); White Blood Count 10.4 K/mm3 (4.5-10.0)
[2023-10-18 11:38] LABS: Alanine Aminotransferase 17 U/L (6-35); Albumin Level 4.4 g/dL (3.5-5.1); Alkaline Phosphatase 104 U/L (38-126); Anion Gap 10 mmol/L (4-12); Aspartate Amino Transferase 25 U/L (14-36); Bilirubin,Total 0.5 mg/dL (0.2-1.3); Blood Urea Nitrogen 22 mg/dL (7-17); Carbon Dioxide 29 mmol/L (22-30); Chloride 101 mmol/L (98-107); Cholesterol 227 mg/dL (0-200); Estimated Glomerular Filt Rate > 60; Glucose 108 mg/dL (65-110); HDL Direct 60 mg/dL; Potassium 3.9 mmol/L (3.4-5.0); Sodium 140 mmol/L (137-145); Triglycerides 107 mg/dL (<150)
[2023-10-18 11:48] LABS: LDL Cholesterol Direct 126 mg/dL
== END 2023-10-18 10:59 | disposition home or self-care (01) ==
PROVIDERS: PCP Family Medicine; Visit Provider Physician Assistant Medical
DX: E78.2 Mixed hyperlipidemia (principal); I10 Essential (primary) hypertension; I48.0 Paroxysmal atrial fibrillation
CPT/HCPCS: 36415; 73521; 80053; 80061; 84443; 85025

== ENCOUNTER 2023-12-29 14:16 | Outpatient (CLI) | payer MEDICARE, BC, SELFPAY ==
--- NOTE | ~2023-12-29 | XR_ITS ---
XR shoulder LT min 2V 12/29/2023 14:39 Indication: Left shoulder pain Procedure: 4 views left shoulder Comparison: 10/28/2022 Findings: Moderate polyarticular osteoarthritis of the left shoulder. Osteopenia. No acute fracture o r traumatic malalignment. Narrowing of the subacromial space. Impression: 1: Moderate polyarticular osteoarthritis of the left shoulder. There is narrowing of the subacromial space suspicious for rotator cuff tear. Reviewed, dictated and finalized at location B. Impression: 1: Moderate polyarticular osteoarthritis of the left shoulder. There is narrowi ng of the subacromial space suspicious for rotator cuff tear.
--- NOTE | ~2023-12-29 | XR_ITS ---
XR shoulder RT min 2V 12/29/2023 14:39 Indication: Right shoulder pain Procedure: 4 views right shoulder Comparison: No prior studies for comparison. Findings: There is moderate polyarticular osteoarthritis of the right shoulder. Osteopenia. No fractu re or traumatic malalignment. Impression: 1: Moderate polyarticular osteoarthritis of the right shoulder. Reviewed, dictated and finalized at location B. Impression: 1: Moderate polyarticular osteoarthritis of the right shoulder.
== END 2023-12-29 14:17 | disposition home or self-care (01) ==
PROVIDERS: PCP Family Medicine; Visit Provider Physical Medicine & Rehabilitation Pain Medicine
DX: M19.011 Primary osteoarthritis, right shoulder (principal); M19.012 Primary osteoarthritis, left shoulder
CPT/HCPCS: 73030

== ENCOUNTER 2024-09-27 14:08 | Emergency (ER) | payer MEDICARE, BC, SELFPAY ==
--- NOTE | ~2024-09-27 | XR_ITS ---
EXAMINATION: XR hip RT 2V w AP pelvis DATE: 09/27/2024 16:29 INDICATION: Nontraumatic right hip pain TECHNIQUE: Anteroposterior view of the pelvis and anteroposterior and frog-leg lateral views of the r ight hip were obtained. COMPARISON: 10/18/2023 FINDINGS: Bone alignment is normal. No fracture or suspected osteonecrosis. There is mild to moderate osteoarth ritis at the bilateral hip and sacroiliac joints. Moderate to severe lumbar spondylosis. Mild osteiti s pubis. There are few phleboliths in the left hemipelvis. Atherosclerotic calcifications in the righ t hemipelvis. Soft tissues are otherwise unremarkable. IMPRESSION: 1. 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 No acute osseous abnormality. 2. Severe lumbar spondylosis. Reviewed, dictated and finalized at location A. IMPRESSION: 1. 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 No acute oss eous abnormality. 2. Severe lumbar spondylosis.
--- NOTE | ~2024-09-27 | XR_ITS ---
EXAMINATION: XR knee RT 3V DATE: 09/27/2024 16:29 INDICATION: Nontraumatic right knee pain TECHNIQUE: Anteroposterior, oblique and crosstable lateral views of the right knee were obtained COMPARISON: None. FINDINGS: Right total knee arthroplasty without patellar resurfacing appears well seated in near-anatomic align ment. No evident periprosthetic lucency to suggest loosening or infection. No fracture. Jude-St ieda lesion with small heterotopic ossicle along the medial margin of the medial femoral condyle sugg esting chronic sprain of the proximal medial collateral ligament. Small enthesophyte at the patellar insertion of the distal quadriceps tendon. Soft tissues are unremarkable. Very small right knee joint effusion without layering lipohemarthrosis. IMPRESSION: 1. Right total knee arthroplasty in near-anatomic alignment with very small right knee joint effusion and no acute osseous abnormality. 2. Jude-Stieda lesion with heterotopic ossification at the proximal medial collateral ligament suggestive of sequela of chronic sprain. Reviewed, dictated and finalized at location A. IMPRESSION: 1. Right total knee arthroplasty in near-anatomic alignment with very small rig ht knee joint effusion and no acute osseous abnormality. 2. Jude-Stieda lesion with heterotopic ossification at the proximal media l collateral ligament suggestive of sequela of chronic sprain.
--- OUTSIDE RECORDS SUMMARY | 2024-09-27 14:11 | XMS_ITS | Clinical Summary ---
Author Organization [facility] Address [address] [facility] [place] [address] Care Team Providers Care Seamer Elastic Band Name Role Phone Juanito Washington MD Unavailable [phone] John Mckeon MD Primary Care Provider [phone] Venancio TUCKER MD, Franco Unavailable [phone] Source Comments [facility],non-owned Affiliates and Associated Physician Practices is amultiple site organization consisting of ambulatory clinics and hospital sitesin [place], [place], [place]. This disclosure is being madepursuant to the Care Everywhere program and may not contain all information available regarding this patient. Last updated 17.[facility] Allergies Active Allergy Reactions Criticality Noted Date Comments Adhesive Sensitivity Other 11/26/2012 Skin peels off Ibuprofen Other Low 11/26/2012 Other reaction(s): Other (See comments) flush, Other reaction(s): Other (See comments) flush flush Nitrofurantoin Other Low 11/24/2016 Leg weakness Penicillins 03/21/2011 Medications * Be aware that medications may not be up to date on this document. Alwaysverify current medications with the patient. dicyclomine (BENTYL) 20 MG tabletIndication s:Lesion of sciatic nerve,Myalgia and myositis, unspecified Take 20 mg by mouth 4 times daily. Active Butalbital-Aceta minophen (BUTALBITAL-APAP PO)Indications:L esion of sciatic nerve,Myalgia and myositis, unspecified Take by mouth. Act zuhair meclizine (ANTIVERT) 25 MG tabletIndication s:Lesion of sciatic nerve,Myalgia and myositis, unspecified Take 25 mg by mouth 3 times daily as needed. Active busPIRone (BUSPAR) 7.5 MG tablet Take 7.5 mg by mouth 2 times daily as needed. Active Loratadine-Pseud oephedrine (CLARITIN-D 24 HOUR PO) Take by mouth. Activ e Propylene Glycol (SYSTANE BALANCE OP) 1 Drop by Ophthalmic route 2 times daily. Active Multiple Vitamins-Mineral s (CENTRUM SILVER PO) Take by mouth once daily after breakfast. Active celecoxib (CELEBREX) 200 MG capsule Take 1 Cap by mouth 2 times daily. 60 Cap 0 4 Active hydrocodone-acet aminophen (NORCO) 5-325 MG tablet TAKE ONE TO TWO TABLETS BY MOUTH EVERY 6 HOURS NEEDED FOR PAIN 60 Tab 0 4 Active carisoprodol (SOMA) 350 MG tablet Take 350 mg by mouth 3 times daily. Active DULoxetine (CYMBALTA) 20 MG capsule Take 20 mg by mouth once daily. Active amitriptyline (ELAVIL) 25 MG tablet 0 6 Active butalbital-aceta minophen-caffein e (FIORICET) 50-325-40 MG tablet Take 50 Tabs by mouth as directed 0 6 Active MICRONIZED COLESTIPOL HCL 1 G tablet Take 1 g by mouth as directed 6 Active meloxicam (MOBIC) 15 MG tablet Take 15 mg by mouth as directed 0 6 Active omeprazole (PRILOSEC) 20 MG capsule Take 20 mg by mouth as directed 0 6 Active venlafaxine XR 24hr (EFFEXOR XR) 37.5 MG capsule Take 37.5 Caps by mouth as directed 0 6 Active lisinopril (PRINIVIL; ZESTRIL) 10 MG tablet TK 1 T PO QD 2 6 Active lidocaine (XYLOCAINE) 1 % injectionIndicat ions:Trochanteri c bursitis of left hip 1ml -3ml for intra muscular use. 6 Active FLUZONE HIGH-DOSE 0.5 ML injectionIndicat ions:Lumbar stenosis,Lumbosa cral radiculitis,Glut eal pain,Myofascial pain ADM 0.5ML IM UTD 0 6 Active lidocaine (XYLOCAINE) 1 % injectionIndicat ions:Gluteal pain,Myofascial pain 1ml -3ml for intra muscular use. 6 Active lidocaine (XYLOCAINE) 1 % injectionIndicat ions:Trochanteri c bursitis of left hip 1ml -3ml for intra muscular use. 7 Active escitalopram (LEXAPRO) 20 MG tablet TK 1 T PO QD 3 7 Active gabapentin (NEURONTIN) 300 MG capsule Take 1 Cap by mouth 3 times daily 90 Cap 2 7 Active metoprolol succinate XL 24hr (TOPROL XL) 25 MG tablet Take 12.5 mg by mouth Active rivaroxaban (XARELTO) 20 MG tablet Take 20 mg by mouth 7 Active HYDROcodone-acet aminophen (NORCO) 5-325 MG tablet Take 5-325 tablets by mouth 7 Active gabapentin (NEURONTIN) 300 MG capsule TAKE 1 CAPSULE BY MOUTH THREE TIMES DAILY 90 capsule 2 8 Active Active Problems Problem Noted Date Diagnosed Date Acute pain of left knee 08/31/2016 Shoulder arthritis 04/09/2015 Left knee pain 08/25/2014 Total knee replacement status 07/25/2013 Osteoarthrosis involving lower leg 06/25/2012 Overview (05/30/2015): 2015 IMO Updt Thoracic or lumbosacral neur itis or radiculitis, unspecified 03/21/2011 Lumbosacral spondylosis without myelopathy 03/21 Myalgia and myositis 03/21/2011 Overview (12/04/2014): 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 Social History Tobacco Use Types Packs/Day Years Used Date Smoking Tobacco: Never Smokeless Tobacco: Never Alcohol Use Standard Drinks/Week Comments Yes 0 (1 standard drink = 0.6 oz pur e alcohol) SOCIAL/RARE Comments No Sex and Gender Information Value Date Recorded Sex Assigned at Not on file 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 Gender Identity Not on file Sexual Orientation Not on file Last Filed Vital Signs Vital Sign Reading Time Taken Comments Blood Pressure 143/82 08/10/2017 1:17 PM CDT Pulse 82 08/10/2017 1:17 PM CDT Temperature 37.1 C (98.7 F) 06/16/2013 5:36 AM CDT Respiratory Rate 16 08/10/2017 1:17 PM CDT Oxygen Saturation 93% 08/10/2017 1:17 PM CDT Inhaled Oxygen Concentration - - Weight 97.5 kg (215 lb) 08/15/2017 1:56 PM CDT Height 165.1 cm (5' 5) 08/15/2017 1:56 PM CDT Body Mass Index 35.78 08/15/2017 1:56 PM CDT Plan of Treatment Health Maintenance Due Date Last Done Comments BONE DENSITY TESTING 1942 MEDICARE AWV 12 MONTHS 1942 DTAP/TDAP/TD VACCINES (1 - Tdap) 1961 PNEUMOCOCCAL VACCINE 50+ (1 of 1 - PCV) 1992 ZOSTER VACCINE (1 of 2) 1992 Respiratory Syncytial Virus (RSV) Vaccine Pt: or over 60 yrs (1 - 1-dose 75+ series) 2017 COVID-19 VACCINE ( - 2023-2 5 season) 2023 DEPRESSION SCREENING 03/06/2024 INFLUENZA VACCINE (#1) 2024 HEPATITIS B VACCINE Aged Out No longe r eligible based on patient's age to complete this topic HIB VACCINE Aged Out No longer eligi ble based on patient's age to complete this topic HPV VACCINE Aged Out No longer eligi ble based on patient's age to complete this topic MENINGOCOCCAL (Group B) VACC INE SHARED DECISION-MAKING Aged Out No longer eligibl e based on patient's age to complete this topic MENINGOCOCCAL GROUPS A/C/Y/W VACCINE Aged Out No longer eligible b ased on patient's age to complete this topic Medical Devices Implanted Type Area Piece Maker Device Identifier Shelf Expiration Date Model / Serial / Lot 13mm Articular Insert Implanted:Qty: 1 on 06/11/2013 by Franco Craft IV, MD at [facility] Right: Knee 12/04/2020 [id number] / / [id number] Right Femoral Component Implanted:Qty: 1 on 06/11/2013 by Franco Craft IV, MD at [facility] Right: Knee 08/04/2022 [id number] / / [id number] 18mm Tibial Stem Implanted:Qty: 1 on 06/11/2013 by Franco Craft IV, MD at [facility] Right: Knee 01/04/2023 [id number] / / [id number] Right Tibial Base Implanted:Qty: 1 on 06/11/2013 by Franco Craft IV, MD at [facility] Right: Knee 10/04/2022 [id number] / / [id number] Floseal Hemostatic Matrix Implanted:Qty: 1 on 06/11/2013 by Franco Craft IV, MD at [facility] Right: Knee [id number] / / [id number] 25 Mm Screw Implanted:Qty: 1 on 06/11/2013 by Franco Craft IV, MD at [facility] Right: Knee 01/04/2023 [id number] / / [id number] 20 Mm Screw Implanted:Qty: 1 on 06/11/2013 by Franco Craft IV, MD at [facility] Right: Knee 01/04/2023 [id number] / / [id number] 25 Mm Screw Implanted:Qty: 2 on 06/11/2013 by Franco Craft IV, MD at [facility] Right: Knee 08/04/2022 [id number] / / [id number] Insurance MEDICARE ANTHEM MEDICARE ANTHEM MEDICARE Advance Directives Documents on File Type Date Recorded Patient Supervisor Extrusion Expl anation Adv Directive/Living Will/POA 06/17/2013 6:07 PM * Full Code (Latest Code Status on File) Date Activated Date Inactivated Comments 06/11/2013 4:08 PM 06/16/2013 3:36 PM Care Teams Seamer Elastic Band Relationship Specialty Start Date End Date John Mckeon MD [address] [place] [address] [place] [address] PCP - General 09/02/11 Juanito Washington MD Orthopedic Surgery 04/21/11 [place] [id number] [facility] [address] [address] Orthopedic Surgery 07/25/13
--- OUTSIDE RECORDS SUMMARY | 2024-09-27 14:11 | XMS_ITS | Encounter Summary ---
Author Organization [facility] Address [address] [place] [address] Care Team Providers Care Grizzlyman Name Role Phone Juanito Washington MD Unavailable [phone] John Mckeon MD Primary Care Provider [phone] Venancio TUCKER MD, Franco Unavailable [phone] Encounter Details Date Type Department Care Team (Late st Contact Info) Description 12/27/2018 Lab Requisition [facility] Lab [address] [facility], 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 Answer Date of Assessment Author No 06/11/2013 4:23 PM CDT Frank, Y olanda J, RN * Is person blind or have serious difficulty seeing? Answer Date of Assessment Author No 06/11/2013 4:23 PM CDT Noel Marie RN * Does person have serious difficulty walking/climbing stairs? Answer Date of Assessment Author No 06/11/2013 4:23 PM CDT Noel Marie RN * Does person have difficulty dressing/bathing? Answer Date of Assessment Author No 06/11/2013 4:23 PM CDT Noel Marie RN * Does person have difficulty doing errands alone? Answer Date of Assessment Author No 06/11/2013 4:23 PM CDT Noel Marie RN documented as of this encounter Mental Status * Does person have difficulty concentrating/remembering/making decisions? Answer Entry Date Author No 06/11/2013 4:23 PM CDT Noel Marie RN documented in this encounter Plan of Treatment Not on file documented as of this encounter Procedures Procedure Name Priority Date/Time Associated Diagnosis Comments DERMATOPATHOLOGY Routine 12/25/2018 12:0 0 AM CDT documented in this encounter Results * DERMATOPATHOLOGY (12/25/2018 12:00 AM CDT) Case Report Dermatopathology Report Case: [id number] Authorizing Provider: John Mckeon MD Collected: 12/25/2018 12:00 AM Ordering Location: [facility] Received: 12/27/2018 01:08 PM Pathologist: Robson Davis MD Specimen: Skin, left upper arm 9 2:51 PM CDT DERMATOPATHOLOGY LABORATORY Final Diagnosis Specimen A. SKIN, left upper arm: PIGMENTED SEBORRHEIC KERATOSIS (L82.1) PRESENT AT MARGIN 9 2:51 PM CDT DERMATOPATHOLOGY LABORATORY at 1451 CDT Clinical History Changing lesion. Check margins. 9 2:51 PM CDT DERMATOPATHOLOGY LABORATORY Gross Description Specimen A: Received is one formalin filled container labeled with the patient's name and designated left upper arm. The specimen consists of a shave biopsy measuring [id number]. The margin is inked green. Jar 0. 9 2:51 PM CDT DERMATOPATHOLOGY LABORATORY Microscopic Description Specimen A. SKIN, left upper arm: Sections show an acanthotic lesion composed of relatively uniform keratinocytes. There is hyperkeratosis and pseudo horn cysts. Pigment is present in the keratinocytes composing this tumor. This lesion is present at the margin of the specimen. 2:51 PM CDT DERMATOPATHOLOGY LABORATORY Disclaimer An external and internal positive and negative controls are appropriate for the histochemical, immunohistochemical and immunofluorescence stain(s) in this case (if any), except where stated explicitly. The performance characteristics of the stain(s) cited in this report were developed and its performance characteristic determined by the Dermatopathology Laboratory at [facility], directed by Dr. Loi Davis. These tests need not be, and therefore are not, approved by the [place] Food and Drug Administration. The tests are used for clinical purposes. Billing Codes Specimen Charges Stain Charges 97059 1 2:51 PM CDT DERMATOPATHOLOGY LABORATORY Embedded Images 2:51 PM CDT DERMATOPATHOLOGY LABORATORY Pathology/Cytolog y TISSUE SPECIMEN FROM SKIN / Unknown 12/25/2018 12/27/2018 1:08 PM CDT us John Mckeon MD LAB - PATHOLOGY[facility] Final Result DERMATOPATHOLOGY LABORATORY [facility] - Department of Dermatology [address] [place] [address], 5th Floor Lab [address] [phone] documented in this encounter Visit Diagnoses Not on filedocumented in this encounter Care Teams Grizzlyman Relationship Specialty Start Date End Date John Mckeon MD [address] [place] [address] PCP - General 09/02/11 Juanito Washington MD Orthopedic Surgery 04/21/11 [place] [id number] [address] [place] [id number] Orthopedic Surgery 07/25/13 documented as of this encounter
--- OUTSIDE RECORDS SUMMARY | 2024-09-27 14:11 | XMS_ITS | Clinical Summary ---
Author Organization [facility] [place] [address] Address [address] [place] [address] Care Team Providers Care Broker Assistant Name Role Phone John Mckeon MD Primary Care Provider + [phone] Allergies Active Allergy Reactions Criticality Noted Date Comments Adhesive Other (See comments) Low 11/26/2012 Skin peels off Ibuprofen Other (See comments) Low 11/26/2012 flush, Nitrofurantoin Monohyd/M-Cryst Diarrhea,Other (See comments) Low 11/24/2016 Leg weakness Penicillins Other (See comments) Low Jaundice, Medications butalbital-corey taminophen-caf feine (FIORICET, ESGIC) 50-325-40 mg per tablet Take 50 tablets by mouth 2 (two) times a day as needed. 6 Active carisoprodol (SOMA) 350 mg tabletIndicati ons:Muscle Spasm Take 1 tablet (350 mg total) by mouth daily as needed 7 Active HYDROcodone-ac etaminophen (NORCO) 5-325 mg per tabletIndicati ons:Pain Take 5-325 tablets by mouth every 6 (six) hours as needed 7 Active meclizine (ANTIVERT) 25 mg tablet Take 1 tablet (25 mg total) by mouth 3 times daily Active omeprazole (PriLOSEC) 20 mg capsule Take 20 mg by mouth daily. 6 Active MULTIVIT-MIN/I AFSANEH/FOLIC/LUTE IN (CENTRUM SILVER WOMEN ORAL) Take by mouth daily. Active glucosamine-ch ondroitin 250-200 mg tablet Take 1 tablet by mouth 2 (two) times a day Active dicyclomine (BENTYL) 20 mg tabletIndicati ons:Irritable Bowel Syndrome Take 1 tablet (20 mg total) by mouth every 6 (six) hours Active busPIRone (BUSPAR) 7.5 mg tabletIndicati ons:Generalize d Anxiety Disorder Take 1 tablet (7.5 mg total) by mouth 2 (two) times a day Active celecoxib (CeleBREX) 200 mg capsule Take 200 mg by mouth daily Active DULoxetine DR (CYMBALTA) 30 mg capsule [address] (CYMBALTA) 60 mg capsule 9 Active acetaminophen ER (TYLENOL) 650 mg 8 hr tablet Take 1 tablet (650 mg total) by mouth every 8 (eight) hours as needed for pain Active Xarelto 20 mg tablet TAKE ONE TABLET BY MOUTH DAILY 90 tablet 2 2 Active Additional Information Patient not taking.Reported on 09/24/2024 pregabalin (LYRICA) 75 mg capsule Take 1 capsule (75 mg total) by mouth 3 (three) times a day 5 Active metoprolol XL (TOPROL-XL) 25 mg extended release tabletIndicati ons:PAF (paroxysmal atrial fibrillation) ([facility]) Take 1 tablet (25 mg total) by mouth daily 90 tablet 3 5 09/25/19 26 Active metoprolol XL (TOPROL-XL) 25 mg extended release tablet Take 0.5 tablets (12.5 mg total) by mouth daily 45 tablet 5 09/25/19 25 Discontin ued(Thera py completed ) Active Problems Problem Noted Date Diagnosed Date Essential hypertension 09/24/2024 Hyperlipidemia LDL goal <130 03/27/2017 Irritable bowel syndrome 12/12/2016 PAF (paroxysmal atrial fibrillation) 12/12/2016 Chronic anticoagulation 12/12/2016 Varicose veins of lower extremity 04/28/2015 Encounters Date Type Department Care Team Description 09/27/2024 Results Follow-Up [facility] Cardiology at [address] [place] [address] Terri Pereyra MD Transthoracic Echo (TTE) Complete W Doppler/CF 09/24/2024 2:00 PM CDT Ancillary Procedure [facility] Cardiology at [address] [place] [phone] PAF (paroxysmal atrial fibrillation) (HCC); Essential hypertension 09/24/2024 10:30 AM CDT Office Visit [facility] Cardiology at [address] [id number] Terri Pereyra MD Chronic anticoagulation (Primary Dx); PAF (paroxysmal atrial fibrillation) (HCC); Hyperlipidemia LDL goal <130; Essential hypertension; Irritable bowel syndrome, unspecified type from Last 3 Months Surgical History Surgery Date Site/Laterality Comments HERNIA REPAIR Hernia repair TONSILLECTOMY Tonsillectomy KNEE ARTHROCENTESIS Arthrocentesis of the right knee joint OTHER SURGICAL HISTORY Arthrocentesis of the left shoulder subacromial space ARTHROCENTESIS OF TROCHANTER IC BURSA Arthrocentesis of the left hip trochanteric bursa KNEE ARTHROCENTESIS Arthrocentesis of the left knee joint Medical History Medical History Date Comments Hx Other Medical 2000 Cholecystectomy Hx Other Medical Oral sx's Hx Other Medical Pt. wears glass es, has varicose veins and joint pa Inflammatory bowel disease Infla mmatory bowel disease Gastroesophageal reflux disease GERD Fibrositis Fibromyalgia Osteoarthritis Osteoarthritis Family History Medical History Relation Name Comments Stroke Mother stroke; Hypertension Other Family history of Hypertension; Lung cancer Sister Cancer, lung; Relation Name Status Comments Mother Other Sister Social History Tobacco Use Types Packs/Day Years Used Date Smoking Tobacco: Never Smokeless Tobacco: Never Tobacco Cessation:Counseling Given: Not Answered Alcohol Use Standard Drinks/Week Comments No 0 (1 standard drink = 0.6 oz pur e alcohol) Comments Unknown Sex and Gender Information Value Date Recorded Sex Assigned at Not on file 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 Gender Identity Not on file Sexual Orientation Not on file Obstetrics History Last Filed Vital Signs Vital Sign Reading Time Taken Comments Blood Pressure 136/82 09/24/2024 11:04 AM CDT Pulse 100 09/24/2024 11:04 AM CDT Temperature - - Respiratory Rate - - Oxygen Saturation 94% 09/24/2024 11:04 AM CDT Inhaled Oxygen Concentration - - Weight 88.5 kg (195 lb) 09/24/2024 11:04 AM CDT Height 162.6 cm (5' 4) 09/24/2024 11:04 AM CDT Body Mass Index 33.47 09/24/2024 11:04 AM CDT Plan of Treatment Health Maintenance Due Date Last Done Comments Depression Screening 1940 Fall Risk Assessment 1940 Osteoporosis Screening-Bone Density Scan 1942 DTaP/Tdap/Td Vaccine (1 - Tdap) 1953 Hepatitis B Screening 1960 Pneumococcal vaccine 65+ (1 of 1 - PCV) 1992 Zoster Vaccine (1 of 2) 1992 Well Visit 65+ 05/27/2007 Influenza Vaccine (#1) 2024 8, 12/30/2015, 03/29/2013 Procedures Procedure Name Priority Date/Time Associated Diagnosis Comments TRANSTHORACIC ECHO (TTE) COMPLETE W DOPPLER/CF W CONTRAST Routine 09/24/2024 2:47 PM CDT PAF (paroxysmal atrial fibrillation) (HCC) Essential hypertension from Last 3 Months Results * TRANSTHORACIC ECHO (TTE) COMPLETE W DOPPLER/CF W CONTRAST (09/24/2024 2:47 PM CDT) Estimated EF 65-70 % CONS SCIMAGE EF Mod BP 61 % CONS SCIMAGE Anatomical Region Laterality Modality Ultrasound 09/24/2024 1:52 PM CDT Narrative 09/24/2024 5:43 PM CDT [facility] Cardiology [address] , [address], [place] [address] P:[phone] P:[phone] Echocardiographic Report Patient Name: TORRI FLOWER L : 1940 Study Date: 09/24/2024 1:52:03 PM Gender: F Tactical Response Group Officer: TERRIE Location: [facility] Ref Provider: TERRI PEREYRA Height(Cm): 163 BSA: 2 Weight(Kg): 88.5 Heart Rate: 105 BP: 136 / 82 Quality: Definity contrast agent used to enhance endocardial border definition Order Provider: TERRI PEREYRA PROCEDURES: Echocardiographic Report: Transthoracic echocardiogram with complete 2D, M-Mode, color Doppler examination and Definity contrast. INDICATIONS: I48.0 Paroxysmal atrial fibrillation and I10 Essential (primary) hypertension. MEASUREMENTS: 2D/MM Value Range Doppler Value Range EF Mod BP 61 % [ 54 - 74 ] SOTO Vmax 2.36 cm2 [ 2.00 - 4.00 ] EF Teich MM 57 % [ 54 - 74 ] AV Mean PG 2 mmHg Estimated EF 65-70 % AV Peak Aram 1.14 m/s [ 1.00 - 1.70 ] LVIDd 2D 4.31 cm [ 3.80 - 5.20 ] AV Peak PG 5 mmHg LVIDd MM 4.50 cm [ 3.80 - 5.20 ] AV VTI 17.58 cm LVIDs 2D 2.89 cm [ 2.20 - 3.50 ] LVOT Diam 2.02 cm [ 1.70 - 2.10 ] LVIDs MM 3.16 cm [ 2.20 - 3.50 ] LVOT Peak Aram 0.83 m/s [ 0.70 - 1.10 ] LVPWd 2D 1.11 cm [ 0.60 - 0.90 ] LVOT VTI 15.27 cm LVPWd MM 0.98 cm [ 0.60 - 0.90 ] MV E Peak Aram 0.57 m/s [ 0.60 - 1.30 ] IVSd 2D 0.92 cm [ 0.60 - 0.90 ] MV A Peak Aram 1.00 m/s [ 1.00 - 1.20 ] IVSd MM 0.95 cm [ 0.60 - 0.90 ] MV Decel Time 127 msec [ 104 - 258 ] LA Dimension MM 3.22 cm [ 2.70 - 3.80 ] PV Peak Aram 0.86 m/s [ 0.40 - 0.80 ] AoR Diam MM 3.52 cm [ 2.70 - 3.70 ] Lateral E` 0.10 m/s [ 0.10 - 0.15 ] LA Volume 39.37 ml [ 22.00 - 52.00 ] Septal E` 0.05 m/s [ 0.08 - 0.15 ] LA Volume Index 20 cc/m2 [ 16 - 28 ] E` 0.08 m/s RA Volume 27.63 ml E/E` 8 2D/MM Value Range Doppler Value Range - FINDINGS: Interpretation Site: Exam was interpreted at [facility]. Left Ventricle: Normal left ventricular systolic function. No focal wall motion abnormalities. Normal left ventricular size. Definity contrast agent used to visually enhance endocardial wall motion and contractility. Lot Number: [id number]. Mild concentric left ventricular hypertrophy. Impaired diastolic relaxation Grade I. Ejection fraction is measured at 61 %. Ejection Fraction is visually estimated to be 65-70 %. Right Ventricle: Normal right ventricular size. Normal right ventricular systolic function. Left Atrium: The left atrium is normal in size. Right Atrium: The right atrium is normal in size. Atrial Septum: Normal atrial septum. Mitral Valve: Normal appearance of the mitral valve. Trivial regurgitation of the mitral valve. There is no hemodynamically significant mitral stenosis by Doppler. Aortic Valve: No evidence of hemodynamically significant aortic stenosis by Doppler. Aortic cusps appear mildly sclerotic. Trileaflet aortic valve. Trace aortic valve regurgitation. Tricuspid Valve: Normal appearance of the tricuspid valve. Right ventricular systolic pressure could not be estimated due to inadequate visualization of the tricuspid regurgitation jet. Mild tricuspid regurgitation. Pulmonic Valve: Normal appearance of the pulmonic valve. No pulmonic stenosis. Trivial regurgitation in the pulmonic valve. Pericardium: Normal pericardium with no significant pericardial effusion. Aorta: Normal aortic root. IVC: Normal size and normal respiratory collapse consistent with normal right atrial pressure (<5 mmHg). CONCLUSIONS: Normal left ventricular systolic function. No focal wall motion abnormalities. Normal left ventricular size. Definity contrast agent used to visually enhance endocardial wall motion and contractility. Lot Number: [id number]. Mild concentric left ventricular hypertrophy. Impaired diastolic relaxation Grade I. Ejection fraction is measured at 61 %. Ejection Fraction is visually estimated to be 65-70 %. Mild tricuspid regurgitation. Normal sinus rhythm. Electronically Signed By: Terri Pereyra MD 09/24/2024 5:42:59 PM CDT Procedure Note Terri Pereyra MD - 09/24/2024 [facility] Cardiology [address], [address], [place] [address] P:[phone] P:[phone] Echocardiographic Report Patient Name: TORRI FLOWER L : 1940 Study Date: 09/24/2024 1:52:03 PM Gender: F Tactical Response Group Officer: Location: [facility] Ref Provider: TERRI PEREYRA Height(Cm): 163 BSA: 2 Weight(Kg): 88.5 Heart Rate: 105 BP: 136 / 82 Quality: Definity contrast agent used to enhance endocardial borderdefinition Order Provider: TERRI PEREYRA PROCEDURES: Echocardiographic Report: Transthoracic echocardiogram with complete 2D, M-Mode, color Dopplerexamination and Definity contrast. INDICATIONS: I48.0 Paroxysmal atrial fibrillation and I10 Essential (primary)hypertension. MEASUREMENTS: 2D/MM Value Range Doppler ValueRange EF Mod BP 61 % [ 54 - 74 ] SOTO Vmax 2.36cm2 [ 2.00 - 4.00 ] EF Teich MM 57 % [ 54 - 74 ] AV Mean PG 2mmHg Estimated EF 65-70 % AV Peak Aram 1.14m/s [ 1.00 - 1.70 ] LVIDd 2D 4.31 cm [ 3.80 - 5.20 ] AV Peak PG 5mmHg LVIDd MM 4.50 cm [ 3.80 - 5.20 ] AV VTI 17.58cm LVIDs 2D 2.89 cm [ 2.20 - 3.50 ] LVOT Diam 2.02cm [ 1.70 - 2.10 ] LVIDs MM 3.16 cm [ 2.20 - 3.50 ] LVOT Peak Aram 0.83m/s [ 0.70 - 1.10 ] LVPWd 2D 1.11 cm [ 0.60 - 0.90 ] LVOT VTI 15.27cm LVPWd MM 0.98 cm [ 0.60 - 0.90 ] MV E Peak Aram 0.57m/s [ 0.60 - 1.30 ] IVSd 2D 0.92 cm [ 0.60 - 0.90 ] MV A Peak Aram 1.00m/s [ 1.00 - 1.20 ] IVSd MM 0.95 cm [ 0.60 - 0.90 ] MV Decel Time 127msec [ 104 - 258 ] LA Dimension MM 3.22 cm [ 2.70 - 3.80 ] PV Peak Aram 0.86m/s [ 0.40 - 0.80 ] AoR Diam MM 3.52 cm [ 2.70 - 3.70 ] Lateral E` 0.10m/s [ 0.10 - 0.15 ] LA Volume 39.37 ml [ 22.00 - 52.00 ] Septal E` 0.05m/s [ 0.08 - 0.15 ] LA Volume Index 20 cc/m2 [ 16 - 28 ] E` 0.08m/s RA Volume 27.63 ml E/E` 8 2D/MM Value Range Doppler ValueRange - FINDINGS: Interpretation Site: Exam was interpreted at [facility]. Left Ventricle: Normal left ventricular systolic function. No focal wall motionabnormalities. Normal left ventricular size. Definity contrast agent used to visually enhanceendocardial wall motion and contractility. Lot Number: [id number]. Mild concentric leftventricular hypertrophy. Impaired diastolic relaxation Grade I. Ejection fraction ismeasured at 61 %. Ejection Fraction is visually estimated to be 65-70 %. Right Ventricle: Normal right ventricular size. Normal right ventricular systolicfunction. Left Atrium: The left atrium is normal in size. Right Atrium: The right atrium is normal in size. Atrial Septum: Normal atrial septum. Mitral Valve: Normal appearance of the mitral valve. Trivial regurgitation of the mitralvalve. There is no hemodynamically significant mitral stenosis by Doppler. Aortic Valve: No evidence of hemodynamically significant aortic stenosis by Doppler.Aortic cusps appear mildly sclerotic. Trileaflet aortic valve. Trace aortic valveregurgitation. Tricuspid Valve: Normal appearance of the tricuspid valve. Right ventricular systolicpressure could not be estimated due to inadequate visualization of the tricuspidregurgitation jet. Mild tricuspid regurgitation. Pulmonic Valve: Normal appearance of the pulmonic valve. No pulmonic stenosis. Trivialregurgitation in the pulmonic valve. Pericardium: Normal pericardium with no significant pericardial effusion. Aorta: Normal aortic root. IVC: Normal size and normal respiratory collapse consistent with normal rightatrial pressure (<5 mmHg). CONCLUSIONS: Normal left ventricular systolic function. No focal wall motionabnormalities. Normal left ventricular size. Definity contrast agent used to visually enhanceendocardial wall motion and contractility. Lot Number: [id number]. Mild concentric leftventricular hypertrophy. Impaired diastolic relaxation Grade I. Ejection fraction ismeasured at 61 %. Ejection Fraction is visually estimated to be 65-70 %. Mild tricuspid regurgitation. Normal sinus rhythm. Electronically Signed By: Terri Pereyra MD 09/24/2024 5:42:59 PM CDT Terri Pereyra MD CV ECHO PROCEDURES Final Result from Last 3 Months Insurance MEDICARE [facility] MEDICARE [facility] MEDICARE Care Teams Broker Assistant Relationship Specialty Start Date End Date John Mckeon MD PCP - General 05/17/11
--- OUTSIDE RECORDS SUMMARY | 2024-09-27 14:11 | XMS_ITS | Referral Summary ---
Author Organization [facility] [place] [address] Address [address] [place] [address] Care Team Providers Care Tobacco Educator Name Role Phone John Mckeon MD Primary Care Provider + [phone] Encounters Date Type Department Care Team Description 09/27/2024 Results Follow-Up [facility] Cardiology at [address] [place] [address] Terri Pereyra MD Transthoracic Echo (TTE) Complete W Doppler/CF 09/24/2024 2:00 PM CDT Ancillary Procedure [facility] Cardiology at [address] [place] [address] PAF (paroxysmal atrial fibrillation) (HCC); Essential hypertension 09/24/2024 10:30 AM CDT Office Visit [facility] Cardiology at [address] [place] [address] Terri Pereyra MD Chronic anticoagulation (Primary Dx); PAF (paroxysmal atrial fibrillation) (HCC); Hyperlipidemia LDL goal <130; Essential hypertension; Irritable bowel syndrome, unspecified type from Last 3 Months Allergies Active Allergy Reactions Criticality Noted Date [...] extended release tabletIndicati ons:PAF (paroxysmal atrial fibrillation) (HCC) Take 1 tablet (25 mg total) by [...] 12/12/2016 Varicose veins of lower extremity 04/28/2015 Social History Tobacco Use Types Packs/Day Years Used Date Smoking Tobacco: Never Smokeless Tobacco: Never Tobacco Cessation:Counseling Given: Not Answered Alcohol Use Standard Drinks/Week Comments No 0 (1 standard drink = 0.6 oz pur e alcohol) Comments Unknown Sex and Gender Information Value Date Recorded Sex Assigned at Not on file 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 Gender Identity Not on file Sexual Orientation [...] 09/24/2024 11:04 AM CDT Plan of Treatment Not on file Procedures Procedure Name Priority Date/Time Associated Diagnosis [...] PM CDT Narrative 09/24/2024 5:43 PM CDT [facility] Cardiology [address], [address], [place] [address] P:[phone] P:[phone] Echocardiographic Report Patient Name: TORRI FLOWER L : 1940 Study Date: 09/24/2024 1:52:03 PM Gender: F Supervisor Printing Shop: TERRIE Location: [facility] Ref Provider: TERRI PEREYRA [...] FINDINGS: Interpretation Site: Exam was interpreted at [facility]. Left Ventricle: Normal left ventricular systolic function. [...] Procedure Note Terri Pereyra MD - 09/24/2024 [facility] Cardiology [address] [facility], [address], [place] [address] P:[phone] P:[phone] Echocardiographic Report Patient Name: TORRI FLOWER L : 1940 Study Date: 09/24/2024 1:52:03 PM Gender: F Supervisor Printing Shop: TERRIE Location: [facility] Ref Provider: TERRI PEREYRA [...] FINDINGS: Interpretation Site: Exam was interpreted at [facility]. Left Ventricle: Normal left ventricular systolic function. [...] Terri Pereyra MD 09/24/2024 5:42:59 PM CDT us Terri Pereyra MD CV ECHO PROCEDURES Final Result from Last 3 Months Insurance MEDICARE [facility] MEDICARE [facility] MEDICARE [facility] Address: [address] [address] [place] [address] Care Teams Tobacco Educator Relationship Specialty Start Date End Date John Mckeon MD PCP - General 05/17/11
--- OUTSIDE RECORDS SUMMARY | 2024-09-27 14:11 | XMS_ITS | Encounter Summary ---
Author Organization [facility] Address [address] [place] [address] Care Team Providers Care Vp Home Health Name Role Phone John Mckeon MD Primary Care Provider + [phone] Encounter Details Date Type Department Care Team (Latest Contact Info) Description 09/27/2024 Results Follow-Up [facility] Cardiology at [address] [place] [address] Shelton Bailey MD [address] [facility] [address] [place] [address] Transthoracic Echo (TTE) Complete W Doppler/CF Social History Tobacco Use Types Packs/Day Years Used Date Smoking Tobacco: Never Smokeless Tobacco: Never Alcohol Use Standard Drinks/Week Comments No 0 (1 standard drink = 0.6 oz pur e alcohol) Comments Unknown Sex and Gender Information Value Date Recorded Sex Assigned at Not on file 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
[2024-09-27 14:19] VITALS: BP 124/77; PULSE 93; RESP 22; TEMP 36.7; O2SAT 93
--- NOTE | 2024-09-27 16:00 | PC.NURSE ---
Pt reported that she felt like she was going to pass out. VS taken in waiting room and found to have a BP of 73/44. ED nurse charge rn notified and patient taken to room.
--- NOTE | 2024-09-27 16:02 | ED.LOWEXIN ---
HPI - Extremity Injury (Lower) General Chief Complaint: Extremity Injury, Lower Stated Complaint: r hip/thigh pain Time Seen by Provider: 09/27/24 16:01 Source: patient Mode of arrival: ambulatory Limitations: no limitations and clinical condition History of Present Illness HPI Narrative: 84 years old white female lives alone came to the ED by ambulance complaining of pain at the right hip laterally and right knee. Patient report chronic right knee pain after knee replacement years ago, pain at the right trochanteric bursa for years, last injection by pain management physician was few months ago, pain started few days ago at the right hip laterally, no trauma, called pain management yesterday for appointment. Patient currently on hydrocodone which did not take today because she like to take it before going to bed and Celebrex 200 mg twice a day. Patient report pain get worse with positioning and walking. She denies any fever, chills, nausea, vomiting, chest pain, shortness of breath, abdominal pain or back pain.. Related Data Home Medications ?Medication ?Instructions ?Recorded ?Confirmed ?Last Taken ?Type glucosamine-chondroitin 250 mg-200 2 tablet PO DAILY 06/07/21 05/27/24 06/17/21 History mg tablet (Osteo Bi-Flex) multivitamin with minerals-folic 1 tablet PO DAILY 06/07/21 05/27/24 06/17/21 History acid 0.4 mg tablet Allergies Allergy/AdvReac Type Severity Reaction Status Date / Time nitrofurantoin Allergy Intermediate Diarrhea Verified 09/27/24 14:09 Sulfa (Sulfonamide Allergy Mild Nausea and Verified 09/27/24 14:09 Antibiotics) Vomiting adhesive tape Allergy Unknown SKIN TEARS Verified 09/27/24 14:09 Penicillins Allergy Unknown JAUNDICE Verified 09/27/24 14:09 Fqybmnq-JKY-CsU Reductase AdvReac Intermediate LEG PAIN Verified 09/27/24 14:09 Inhibitor ibuprofen AdvReac Unknown Flushing Verified 09/27/24 14:09 Review of Systems Review of Systems: All systems reviewed & are unremarkable except as noted in HPI and below PMFSH Past Medical History Medical History BMI 37.0-37.9, adult Displaced fracture of left radial styloid process, initial encounter for closed fracture Hx of renal calculi Chronic pain syndrome Chronic anticoagulation Paroxysmal atrial fibrillation Hypokalemia Antibiotic-associated diarrhea Essential hypertension Mixed hyperlipidemia Left cataract Spinal stenosis Fibromyalgia Arthritis Depression Anxiety Surgical History Surgical History History of cataract extraction with lens replacement History of left knee replacement History of tonsillectomy History of benign breast biopsy History of inguinal hernia repair History of cholecystectomy History of right knee joint replacement Status post knee surgery S/P total knee arthroplasty Family History Family History Mother Hypertension Cerebrovascular accident Sibling Carcinoma of colon Family history of coronary artery disease Father No problems noted. Other Diabetes mellitus Family history of malignant neoplasm Social History Social History Social History: Surrogate medical decision maker: Virgil Ramirez, friend. Code status: Full code Smoking status: Never smoker Second hand tobacco smoke exposure: No Alcohol intake: never Substance use: never Substance use type: does not use Lack of Transportation: No Lack of Food: Never True Current Housing: I Have Housing Concerned About Future Housing: No Difficulty Paying Gas/Electric Bills: No Difficulty Paying for Meds: No Currently Unemployed: No Education: High School Diploma/GED Difficulty w/ Childcare or Family Care: No Living arrangements: alone Additional living arrangements comments: Lives in her own home. She has 3 children. Ambulates with a cane. 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 Spiritual care concerns: No Exam Narrative: General appearance: Well-developed, well-nourished Skin: Normal color Head: Normocephalic, nontraumatic Eyes: Clear conjunctiva ENT: Oropharynx normal, ears normal, nose normal Neck: Supple, nontender Chest and respiratory: Airway patent, no respiratory distress, no accessory muscle use Heart: Regular rate/rhythm Abdomen: Soft, nontender, no organomegaly, quiet bowel sounds Vascular: Normal peripheral pulses, normal capillary refill. Musculoskeletal: Xsgr-uz-slwsjvot tenderness right hip laterally, slight limited range of motion because of pain, no bruises, no swelling, no rash right knee exam showed surgical scar, no bruises, no swelling, no rash, no deformity patient able to flex right knee with slight pain Neurologic: Alert and oriented ?3, DINKER is normal as tested, no gross motor deficit Course Vital Signs Vital signs: Vital Signs Temperature 36.7 C 09/27/24 14:19 Pulse Rate 93 09/27/24 14:19 Respiratory Rate 22 H 09/27/24 14:19 Blood Pressure 124/77 09/27/24 14:19 Pulse Oximetry 93 09/27/24 14:19 Oxygen Delivery Room Air 09/27/24 14:19 Temperature 36.7 C 09/27/24 14:19 Pulse Rate 72 09/27/24 16:39 Respiratory Rate 13 09/27/24 16:39 Blood Pressure 147/32 H 09/27/24 16:39 Pulse Oximetry 93 09/27/24 16:39 Oxygen Delivery Room Air 09/27/24 14:19 MDM - Extremity Injury (Lower) MDM Narrative Medical decision making narrative: Patient came with right hip and right knee pain, chronic, pain management, on Celebrex and hydrocodone. Physical examination consistent with right trochanteric bursitis. X-ray of the right hip and right knee showed no acute abnormalities Patient received hydrocodone in the ED prior to discharge. [facility] placement/rehabilitation was discussed with the patient, she declined and she is telling me she is able to take care of herself at home and basically waiting for the pain management appointment for another injection. Differential Diagnosis Differential diagnosis: Likely other (Trochanteric bursitis, hip arthritis, knee arthritis) Imaging Data Radiologist's impression: Impressions Hip/Pelvis X-Ray 09/27/24 16:44 IMPRESSION: 1. 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 No acute osseous abnormality. 2. Severe lumbar spondylosis. Knee X-Ray 09/27/24 16:48 IMPRESSION: 1. Right total knee arthroplasty in near-anatomic alignment with very small right knee joint effusion and no acute osseous abnormality. 2. Jude-Stieda lesion with heterotopic ossification at the proximal medial collateral ligament suggestive of sequela of chronic sprain. Critical Care Time Critical Care Time Critical Care Time: No Discharge Plan Discharge Clinical Impression: Chronic hip pain, Chronic knee pain Patient Disposition: Home Condition: Stable Instructions: Hip Bursitis (ED), Knee Pain (ED) Patient Language: Burundian Prescriptions: No Action metoprolol succinate 25 mg tablet extended release 24 hr 12.5 mg PO QAM Qty: 30 0RF Rx Instructions: Take 1/2 tablet by oral route every day cardio omeprazole 20 mg capsule,delayed release(DR/EC) 20 mg PO DAILY PRN (Reason: Indigestion) Qty: 90 0RF duloxetine 60 mg capsule,delayed release(DR/EC) 60 mg PO HS Qty: 90 0RF Rx Instructions: Taking with 30mg daily duloxetine 30 mg capsule,delayed release(DR/EC) 30 mg PO HS Qty: 90 3RF Rx Instructions: takes with 60mg tablet buspirone 7.5 mg tablet 7.5 mg PO TID Qty: 270 1RF celecoxib [Celebrex] 200 mg capsule 200 mg PO BID Qty: 180 0RF glucosamine-chondroitin [Osteo Bi-Flex] 250-200 mg Tablet 2 tablet PO DAILY multivit with min-folic acid 0.4 mg Tablet 1 tablet PO DAILY hydrocodone-acetaminophen 5-325 mg Tablet 1 tablet PO Q4H PRN (Reason: Pain Rated 4-6) Qty: 12 0RF bupropion HCl [Wellbutrin XL] 150 mg tablet extended release 24 hr 150 mg PO QAM Qty: 30 3RF qifupgxzha-ujrnkqjaiticu-zpyl 50-325-40 mg tablet 1 tablet PO Q4H PRN (Reason: Headache) Qty: 120 0RF Rx Instructions: 3mo supply dicyclomine 20 mg tablet 20 mg PO QID PRN (Reason: Abdominal Discomfort) Qty: 120 0RF pregabalin [Lyrica] 75 mg capsule 75 mg PO TID Qty: 270 0RF Follow-up/Referrals: John Mckeon MD [Primary Care Provider] -
[2024-09-27 16:10] VITALS: BP 73/44; PULSE 78; RESP 20
--- NOTE | 2024-09-27 16:21 | PC.NURSE ---
patient to radiology at this time
--- OUTSIDE RECORDS SUMMARY | 2024-09-27 16:32 | XMS_ITS | Referral Summary ---
Author Organization [facility] [address] Address [address] [place] [address] Care Team Providers Care Extracorporeal Technician Name Role Phone John Mckeon MD Primary Care Provider [phone] Encounters Date Type Department Care Team Description 09/27/2024 Results Follow-Up [facility] Medical [facility] Cardiology at [address] [place] [address] Terri Pereyra MD Transthoracic Echo (TTE) Complete W Doppler/CF 09/24/2024 2:00 PM CDT Ancillary Procedure [facility] Cardiology at [address] [place] [address] PAF (paroxysmal atrial fibrillation) (HCC); Essential hypertension 09/24/2024 10:30 AM CDT Office Visit [facility] Cardiology at [address] [place] [address] Terri Pereyra MD Chronic anticoagulation [...] on file 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 Left Ventricle: Normal left ventricular systolic function. 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 Left Ventricle: Normal left ventricular systolic function. [...] Result from Last 3 Months Insurance MEDICARE [facility] MEDICARE [facility] MEDICARE Care Teams Extracorporeal Technician Relationship Specialty Start Date End Date John Mckeon MD PCP - General 05/17/11
--- OUTSIDE RECORDS SUMMARY | 2024-09-27 16:32 | XMS_ITS | Clinical Summary ---
Author Organization [facility] Address [address] [place] [address] Care Team Providers Care Refrigeration Mechanic Helper Name Role Phone Juanito Washington MD Unavailable [phone] John Mckeon MD Primary Care Provider Venancio TUCKER MD, Franco Unavailable [phone] Source Comments [facility],non-owned Affiliates and Associated Physician Practices is amultiple site organization consisting of ambulatory clinics and hospital sitesin [place], [place], [place] and [place]. This disclosure is being madepursuant to the Care Everywhere program and may not contain all information available regarding this patient. 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 Gender Identity Not on file Sexual Orientation [...] this topic Medical Devices Implanted Type Area Reel Man Device Identifier Shelf Expiration Date Model / Serial / Lot 13mm Articular Insert Implanted:Qty: 1 on 06/11/2013 by Franco Craft IV, MD at [facility] Right: Knee 12/04/2020 [id number] / / [id number] Right Femoral Component Implanted:Qty: 1 on 06/11/2013 by Franco Craft IV, MD at [facility] Right: Knee 08/04/2022 [id number] / / [id number] 18mm Tibial Stem Implanted:Qty: 1 on 06/11/2013 by Franco Craft IV, MD at [facility] Right: Knee 01/04/2023 [id number] / / [id number] Right Tibial Base Implanted:Qty: 1 on 06/11/2013 by Franco Craft IV, MD at [facility] Right: Knee 10/04/2022 [id number] / / [id number] Floseal Hemostatic Matrix Implanted:Qty: 1 on 06/11/2013 by Franco Craft IV, MD at [facility] Right: Knee [id number] / / [id number] 25 Mm Screw Implanted:Qty: 1 on 06/11/2013 by Franco Craft IV, MD at [facility] Right: Knee 01/04/2023 [id number] / / [id number] 20 Mm Screw Implanted:Qty: 1 on 06/11/2013 by Franco Craft IV, MD at [facility] Right: Knee 01/04/2023 [id number] / / [id number] 25 Mm Screw Implanted:Qty: 2 on 06/11/2013 by Franco Craft IV, MD at [facility] Right: Knee 08/04/2022 [id number] / / [id number] Insurance MEDICARE ANTHEM MEDICARE ANTHEM MEDICARE Advance Directives Documents on File Type Date Recorded 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
--- OUTSIDE RECORDS SUMMARY | 2024-09-27 16:32 | XMS_ITS | Encounter Summary ---
Author Organization [facility] Address [address] [place] [address] Care Team Providers Care High Man Name Role Phone Juanito Washington MD Unavailable John Mckeon MD Primary Care Provider [phone] Venancio TUCKER MD, Franco Unavailable [phone] Encounter Details Date Type Department Care Team (Late st Contact Info) Description 12/27/2018 Lab Requisition 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 The margin is inked green. Jar 0. [...] characteristic determined by the Dermatopathology Laboratory at [facility], directed by Dr. Loi Davis. These tests need not be, and therefore are not, approved by the [place] Food and Drug Administration. The tests are used for clinical purposes. Billing Codes Specimen Charges Stain Charges 51472 1 2:51 PM CDT DERMATOPATHOLOGY LABORATORY Embedded Images 2:51 PM CDT DERMATOPATHOLOGY LABORATORY Pathology/Cytolog y TISSUE SPECIMEN FROM SKIN / Unknown 12/25/2018 12/27/2018 1:08 PM CDT us John Mckeon MD LAB - PATHOLOGY/CYTOLOGY [facility] Final Result DERMATOPATHOLOGY LABORATORY [facility] - Department of Dermatology [address] [place] [address], 5th Floor Lab [address] [phone] documented in this encounter Visit Diagnoses Not on filedocumented in this encounter Care Teams High Man Relationship Specialty Start Date End Date John Mckeon MD [address] [place] [address] PCP - General 09/02/11 Juanito Washington MD Orthopedic Surgery 04/21/11 [place] [address] [address] [address] [place] [address] Orthopedic Surgery 07/25/13 documented as of this encounter
--- OUTSIDE RECORDS SUMMARY | 2024-09-27 16:32 | XMS_ITS | Clinical Summary ---
Author Organization [facility] [address] Address [address] [place] [address] Care Team Providers Care Cold Type Composing Machine Operator Name Role Phone John Mckeon MD Primary Care Provider [phone] Allergies Active Allergy Reactions Criticality Noted Date [...] extended release tabletIndicati ons:PAF (paroxysmal atrial fibrillation) ([facility]) Take 1 tablet (25 mg total) by [...] Department Care Team Description 09/27/2024 Results Follow-Up [facility] Cardiology at [address] [place] [address] Terri Pereyra MD Transthoracic Echo (TTE) Complete W Doppler/CF 09/24/2024 2:00 PM CDT Ancillary Procedure [facility] Cardiology at [address] [place] [address] PAF (paroxysmal atrial fibrillation) (HCC); Essential hypertension 09/24/2024 10:30 AM CDT Office Visit [facility] Cardiology at [address] [phone] Terri Pereyra MD Chronic anticoagulation (Primary Dx); [...] on file 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 Left Ventricle: Normal left ventricular systolic function. [...] Procedure Note Terri Pereyra MD - 09/24/2024 [facility] Cardiology [address], [address], [place] [address] P:[phone] P:[phone] Echocardiographic Report Patient Name: TORRI FLOWER L : 1940 Study Date: 09/24/2024 1:52:03 PM Gender: F Library Acquisitions Technician: Location: [facility]W Ref Provider: TERRI PEREYRA Height(Cm): [...] FINDINGS: Interpretation Site: Exam was interpreted at [facility]. Left Ventricle: Normal left ventricular systolic function. [...] Result from Last 3 Months Insurance MEDICARE [facility] MEDICARE [facility] MEDICARE Care Teams Cold Type Composing Machine Operator Relationship Specialty Start Date End Date John Mckeon MD PCP - General 05/17/11
--- OUTSIDE RECORDS SUMMARY | 2024-09-27 16:32 | XMS_ITS | Encounter Summary ---
Author Organization [facility] Address [address] [place] [address] Care Team Providers Care Garbage Person Name Role Phone John Mckeon MD Primary Care Provider + [phone] Encounter Details Date Type Department Care Team (Latest Contact Info) Description 09/27/2024 Results Follow-Up [facility] Cardiology at [address] [place] [address] Shelton Bailey MD [address] [facility] [address] [place] [address] Transthoracic Echo (TTE) Complete W Doppler/CF Social History Tobacco Use Types Packs/Day Years Used Date Smoking Tobacco: Never Smokeless Tobacco: Never Alcohol Use Standard Drinks/Week Comments No 0 (1 standard drink = 0.6 oz pur e alcohol) Comments Unknown Sex and Gender Information Value Date Recorded Sex Assigned at Not on file Legal Sex Female 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
[2024-09-27] MEDS: HYDROcodone/acetaminophen (*CRX) 5-325 MG TABLET 1 TAB PO (16:38)
[2024-09-27 16:39] VITALS: BP 147/32; PULSE 72; RESP 13; O2SAT 93
[2024-09-27 19:24] VITALS: BP 134/69; PULSE 75; RESP 18; O2SAT 96
== END 2024-09-27 18:28 | disposition home or self-care (01) ==
PROVIDERS: Emergency Provider Emergency Medicine; PCP Family Medicine
DX: M25.551 Pain in right hip (principal); M25.561 Pain in right knee; G89.4 Chronic pain syndrome; I48.0 Paroxysmal atrial fibrillation; I10 Essential (primary) hypertension; E78.2 Mixed hyperlipidemia; M79.7 Fibromyalgia; M19.90 Unspecified osteoarthritis, unspecified site; F41.9 Anxiety disorder, unspecified; F32.A Depression, unspecified; Z96.1 Presence of intraocular lens; Z96.653 Presence of artificial knee joint, bilateral; Z87.442 Personal history of urinary calculi; Z98.49 Cataract extraction status, unspecified eye; Z90.49 Acquired absence of other specified parts of digestive tract; Z79.899 Other long term (current) drug therapy; M47.816 Spondylosis without myelopathy or radiculopathy, lumbar region; M46.1 Sacroiliitis, not elsewhere classified; M16.0 Bilateral primary osteoarthritis of hip
CPT/HCPCS: 73502; 73562; 99284; A9270